=== PATIENT | female | born 1960 | race Caucasian/White ===

== ENCOUNTER 2021-07-07 04:49 | Inpatient (IN) | payer BC, SELFPAY ==
[2021-07-07] VITALS (11 sets, daily range): BP systolic 111–164; BP diastolic 69–96; PULSE 65–94; RESP 13–20; TEMP 36.7–37.2; O2SAT 94–100
--- NOTE | ~2021-07-07 | XR_ITS ---
EXAMINATION: XR abdomen NG/feed tube insert EXAM DATE: 07/07/2021 08:56 INDICATION: NG tube placement TECHNIQUE: Frontal projection(s) of the abdomen for interpretation. There is no prior study for ovidio mauro. FINDINGS: Tip of the feeding tube is in the patulous portion of the distal esophagus, above the gastr ic banding device. Given the size of the gastroesophageal lumen at the gastric banding device, doubtf ul that this could be advanced any further. There was fluid within the patulous distal esophagus on t he CT scan. No upper abdominal dilated small bowel. Lung bases are clear. Contrast within renal calyc es. IMPRESSION: Feeding tube tip within patulous distal esophagus above the gastric banding device - prob ably would not be able to advance this any further correlating with CT. No dilated small bowel in the upper abdomen. Reviewed, dictated and finalized at location D. TION CLASSIFIER IMPRESSION: Feeding tube tip within patulous distal esophagus above the gastric banding device - probably would not be able to advance this any further correl ating with CT. No dilated small bowel in the upper abdomen.
--- NOTE | ~2021-07-07 | XR_ITS ---
EXAMINATION: XR abdomen obstructive series DATE: 07/08/2021 08:34 INDICATION: Small bowel intussusception. Abdominal pain. TECHNIQUE: Upright and supine views of the abdomen were obtained. COMPARISON: CT abdomen and pelvis 07/07/2021 FINDINGS: There are no dilated loops of bowel. The nasogastric tube tip is in the stomach with proxim al side port in the distal esophagus. A lap band is noted around the proximal stomach. No free intrap eritoneal gas. Radiopaque foreign bodies overlying left pelvis may be outside the patient. IMPRESSION: 1. Nonobstructive bowel gas pattern. 2. Nasogastric tube tip in the stomach with proximal side port in the distal esophagus. Reviewed, dictated and finalized at location A. RNAL AUDIT MANAGER IMPRESSION: 1. Nonobstructive bowel gas pattern. 2. Nasogastric tube tip in the stomach with proximal side port in the distal es ophagus.
--- NOTE | ~2021-07-07 | CT_ITS ---
EXAMINATION: CT abdomen pelvis w con DATE: 07/07/2021 07:10 INDICATION: Upper abdominal pain TECHNIQUE: Computed tomography (CT) of the abdomen and pelvis was performed with 100 mL Omnipaque-350 intravenous contrast. Automated exposure control and iterative reconstruction technique were employe d. The dose-length product was 582.64 mGy-cm. COMPARISON: None FINDINGS: Small fat-containing left-sided Bochdalek hernia. Heart size is normal. No pericardial or pleural eff usion. Likely reflux fluid within either a small sliding-type hiatal hernia versus patulous distal es ophagus. Adjustable laparoscopic banding procedure with normal phi angle of 45 degrees. Liver, gallbl adder, spleen, pancreas, bilateral adrenal glands and kidneys are normal. There is a small bowel intu ssusception in the central abdomen which extends over approximately 15 cm length there is a 2.6 x 1.7 x 1.2 cm likely intramural lipoma as a lead mass. Small amount of fluid within the small bowel at th e proximal side of the intussusception with decompression of the more distal small bowel. There are h owever no additional more proximal fluid-filled loops of small bowel to suggest obstruction although the duration of time the intussusception is been present is unknown and could not exclude a very catarina y obstruction. Colon is unremarkable. The appendix is not visualized. No pericecal inflammatory delarosa e to suggest acute appendicitis. Bladder, uterus and right adnexa are unremarkable. 1.9 cm partially rim calcified left adnexal cyst. Trace amount of likely physiologic free fluid in the cul-de-sac. No pneumatosis, abscess or free intraperitoneal gas. No pathologically enlarged abdominal or pelvic lymp hadenopathy. Mild lumbar levoscoliosis with moderate spondylosis. IMPRESSION: 1. Small bowel intussusception with 2.6 x 1.7 x 1.2 cm intramural lipoma as the lead mass. This is li fernandez very recent as there is no significant upstream bowel dilation to suggest obstruction of any sig nificant length of time. Line 2. Likely refluxed fluid either within a sliding-type hiatal hernia or patulous distal esophagus prox imal to the ring of an adjustable gastric banding procedure which is in expected position. Reviewed, dictated and finalized at location A. VISION PRODUCTION ASSISTANT IMPRESSION: 1. Small bowel intussusception with 2.6 x 1.7 x 1.2 cm intramural lipoma as the lead mass. This is likely very recent as there is no significant upstream kelsi l dilation to suggest obstruction of any significant length of time. Line 2. Likely refluxed fluid either within a sliding-type hiatal hernia or patulous distal esophagus proximal to the ring of an adjustable gastric banding procedu re which is in expected position.
--- NOTE | ~2021-07-07 | XR_ITS ---
EXAMINATION: XR abdomen/kub 1V DATE: 07/11/2021 11:59 INDICATION: Adynamic ileus. TECHNIQUE: A supine view of the abdomen on 2 radiographs was obtained. COMPARISON: CT abdomen and pelvis 07/07/2021 FINDINGS: There are no dilated loops of bowel. There is oral contrast in the colon. The nasogastric t ube tip is in the stomach. A gastric band is noted. IMPRESSION: 1. Normal bowel gas pattern. Reviewed, dictated and finalized at location A. OME CENTER AGENT
--- NOTE | ~2021-07-07 | XR_ITS ---
EXAMINATION: XR chest 2V DATE: 07/07/2021 06:24 INDICATION: Chest and abdominal pain. TECHNIQUE: AP and lateral views of the chest were obtained. COMPARISON: Chest radiograph dated 01/13/2017 FINDINGS: The lungs remain clear with no focal airspace opacities, pulmonary edema, pleural effusion or pneumot horax. The cardiomediastinal silhouette is normal. Adjustable gastric lap band in expected position. Mild thoracolumbar dextroscoliosis with mild spondylosis. IMPRESSION: 1. No acute cardiopulmonary disease. Reviewed, dictated and finalized at location A. ZER LABORATORY TECHNICIAN
--- NOTE | ~2021-07-07 | XR_ITS ---
EXAMINATION: XR abdomen obstructive series DATE: 07/09/2021 06:59 INDICATION: Small bowel obstruction TECHNIQUE: Upright and supine views of the abdomen were obtained. COMPARISON: 07/08/2021 FINDINGS: The nasogastric tube is in the stomach. There are persistently dilated loops of small bowel in the left abdomen and pelvis. Contrast from yesterday's small bowel follow-through persists in dil ated small bowel loops to the area of the intussusception seen on CT. There has been no appreciable p rogression of contrast. A gastric lap band is noted. No intraperitoneal gas is identified. The lung b ases are clear. IMPRESSION: 1. Persistent small bowel obstruction. Reviewed, dictated and finalized at location A. RY GOODS MAKER
--- NOTE | ~2021-07-07 | XR_ITS ---
EXAMINATION: XR UGI water soluble w sbs DATE: 07/08/2021 16:54 INDICATION: Small bowel intussusception. TECHNIQUE: Water-soluble contrast was injected into the nasogastric tube. Fluoroscopy of the esophagu s, stomach, and small bowel was performed. Fluoroscopy exposure time was 3.2 minutes. Radiographs of the abdomen were obtained. The total number of images was 12. COMPARISON: CT abdomen and pelvis 07/07/2021 FINDINGS: UPPER GASTROINTESTINAL SERIES: The nasogastric tube tip is in the stomach with proximal side port in the distal esophagus. Injected contrast entered the stomach and esophagus. The tube was repositioned with the tip and proximal side port both in the stomach. There is a gastric band around the proximal stomach. The esophagus is patul ous. The stomach shows a normal folding pattern. SMALL BOWEL SERIES: At 6 hours, contrast had not passed the area of the intussusception seen by CT. Some of the opacified small bowel loops are distended. IMPRESSION: 1. Small bowel obstruction at the site of the intussusception seen by CT. Reviewed, dictated and finalized at location A. ER
--- NOTE | 2021-07-07 05:18 | ECG_ITS ---
Measurements Intervals [place] Rate: 68 P: 78 IN: 155 QRS: 18 QRSD: 91 T: 50 QT: 406 QTc: 433 Interpretive Statements SINUS RHYTHM POSSIBLE LEFT ATRIAL ENLARGEMENT BORDERLINE ECG Electronically Signed On 07-07-2021 5:52:18 POLICE DETECTIVE by Abilio Sparks D.O.
--- NOTE | 2021-07-07 05:21 | ED.CHESTPAIN ---
HPI - Chest Pain General Chief Complaint: Chest Pain <Troy Bautista MD - Last Filed: 07/07/21 07:18> Stated Complaint: chest pain <Troy Bautista MD - Last Filed: 07/07/21 07:18> Time Seen by Provider: 07/07/21 05:13 <Troy Bautista MD - Last Filed: 07/07/21 07:18> Source: patient <Troy Bautista MD - Last Filed: 07/07/21 07:18> History of Present Illness HPI narrative: Patient denies any cecal mass, history presents with epigastric pain. Reports pain starts in her epigastric area and radiates up into her chest. Describes the pain as just pain . There is no clear aggravating or alleviating factors. Short symptoms started around 2 AM and then associated with nausea and dry heaves. She denies any diarrhea denies any shortness of breath denies any recent hospitalizations or significant cardiac history <Troy Bautista MD - Last Filed: 07/07/21 07:18> Related Data Home Medications: Home Medications Medication Instructions Recorded Confirmed No Home Medications 07/07/21 07/07/21 <Troy Bautista MD - Last Filed: 07/07/21 07:18> Allergies/Adverse Reactions: Allergies Allergy/AdvReac Type Severity Reaction Status Date / Time No Known Allergies Allergy Verified 07/07/21 11:43 <Troy Bautista MD - Last Filed: 07/07/21 07:18> Review of Systems Review of Systems: CONSTITUTIONAL: Denies fever, chills, or sweats. EYES: Denies visual changes, redness, or discharge. ENT: Denies rhinorrhea, congestion, sore throat, or otalgia. CARDIOVASCULAR: Denies palpitations, or edema. RESPIRATORY: Denies cough or dyspnea. GASTROINTESTINAL: Reports abdominal pain nausea dry heaves GENITOURINARY: Denies dysuria or hematuria. SKIN: Denies rash or itching. MUSCULOSKELETAL: Denies back pain, joint pain, or myalgia. NEUROLOGIC: Denies headache, numbness, dizziness, or weakness. PSYCHIATRIC: Denies anxiety or depression. <Troy Bautista MD - Last Filed: 07/07/21 07:18> PMFSH Past Medical History Medical History: Medical History (Updated 07/07/21 @ 14:18 by Shelley Du PA-C) Osteoarthritis of left knee <Troy Bautista MD - Last Filed: 07/07/21 07:18> Surgical History Surgical History: Surgical History (Updated 07/07/21 @ 14:16 by Shelley Du PA-C) History of knee replacement History of laparoscopic adjustable gastric banding (2005) <Troy Bautista MD - Last Filed: 07/07/21 07:18> Family History Family History: Family History (Updated 07/07/21 @ 13:26 by URBANO Wadsworth) Other No pertinent family history <Troy Bautista MD - Last Filed: 07/07/21 07:18> Social History Social History: Social History (Updated 07/07/21 @ 14:17 by Shelley Du PA-C) Social History: Surrogate decision maker: Code status: Full code. Smoking packs per day: 1 Smoking cigarettes per day: 20.0 Years smoked: 30 Smoking pack-years: 30.00 Smoking status: Former smoker Tobacco type: cigarettes Smoking end date: 07/25/03 Alcohol intake: current Drinks per week: 2 Substance use: never Substance use type: does not use Living arrangements: with family Additional living arrangements comments: The patient lives in [place] with her adopted child and 2 foster children. Occupation/Education: occupation <Troy Bautista MD - Last Filed: 07/07/21 07:18> Exam Narrative: GENERAL: Well-appearing, well-nourished, and in no acute distress. HEAD: Normocephalic, atraumatic. EYES: PERRLA and EOMI. ENT: Nares clear, no rhinorrhea or epistaxis. Mucous membranes moist. NECK: Supple. No masses. No JVD CHEST: Clear to auscultation. No respiratory distress. No wheezes rales or rhonchi HEART: Regular rate and rhythm. No murmur heard. Normal peripheral pulses. ABDOMEN: Moderate tenderness in the epigastric area soft, nondistended, normal active bowel sounds. EXTREMITIES: Normal range of motion. No
[2021-07-07] MEDS: SODIUM CHLORIDE 0.9% IV 1,000 ML 999 ML IV CONT (05:27)
[2021-07-07] MEDS: LIDOCAINE HCL 2% VISC SOLN 15 ML UDC 20 ML PO (05:29)
[2021-07-07] MEDS: MAG HYDROX/AL HYDROX/SIMETH 30 ML UDC PO (05:29)
[2021-07-07] MEDS: MORPHINE SULFATE (*CRX) 4 MG/ML INJ IV PUSH ×5 (05:44→13:48)
[2021-07-07] MEDS: ONDANSETRON INJ 4 MG/2 ML VIAL IV PUSH ×2 (05:44→21:00)
[2021-07-07 06:19] LABS: Basophils Absolute Auto 0.1 K/mm3 (0.0-0.1); Basophils Percent Auto 0.5 % (0.2-1.2); Eosinophils Absolute Auto 0.1 K/mm3 (0-0.3); Eosinophils Percent Auto 1.1 % (0-4.4); Hematocrit 38.8 % (37.0-47.0); Hemoglobin 12.9 g/dL (12.0-15.0); Immature Granulocyte Absolute 0.05 K/mm3 (0.00-0.031); Immature Granulocyte Percent A 0.4 % (0-0.5); Lymphocytes Absolute Auto 1.68 K/mm3 (0.9-3.2); Lymphocytes Percent Auto 12.8 % (18.3-44.2); Mean Corpuscular HGB Conc 33.2 g/dl (32-36); Mean Corpuscular Hemoglobin 27.5 pg (26-34); Mean Corpuscular Volume 82.7 fl (80-100); Mean Platelet Volume 10.2 fl (7.4-10.4); Monocytes Absolute Auto 0.7 K/mm3 (0.1-0.6); Monocytes Percent Auto 5.6 % (2.6-8.5); Neutrophils Absolute Auto 10.5 K/mm3 (1.3-6.7); Neutrophils Percent Auto 79.6 % (45.5-73.1); Platelet Count Result 336 k/mm3 (150-375); Red Blood Count 4.69 M/mm3 (4.2-5.4); Red Cell Distribution Width 13.8 % (11.5-14.5); White Blood Count 13.1 K/mm3 (4.5-10.0)
[2021-07-07 06:29] LABS: Add Urine Microscopic? YES; Appearance Urine Cloudy (Clear); Bacteria Urine Trace /hpf; Bilirubin Urine Negative (Negative); Blood Urine 1+ (Negative); Color Urine Yellow (Yellow); Glucose Urine UA Negative (Negative); Ketones Urine 1+ mg/dL (Negative); Leukocyte Esterase Ur Negative LEU/UL (Negative); Mucus Urine Few /lpf; Nitrate Urine Negative (Negative); Protein Urine Negative (Negative); Squamous Epithelial Cell Urine Occasional /hpf (Few); Urobilinogen Urine Negative mg/dL (<2.0); WBC Urine 0-3 /hpf
[2021-07-07 06:32] LABS: Alanine Aminotransferase 15 U/L (4-35); Albumin Level 3.9 g/dL (3.5-5.1); Alkaline Phosphatase 69 U/L (38-126); Anion Gap 10 mmol/L (8-16); Aspartate Amino Transferase 23 U/L (14-36); Bilirubin,Total 0.8 mg/dL (0.2-1.3); Blood Urea Nitrogen 15 mg/dL (7-17); Calcium 8.9 mg/dL (8.4-10.2); Carbon Dioxide 21 mmol/L (22-30); Chloride 106 mmol/L (98-107); Estimated CRCL calculation 77 ml/min; Estimated Glomerular Filt Rate > 60; Glucose 182 mg/dL (65-110); Potassium 2.8 mmol/L (3.4-5.0); Sodium 137 mmol/L (137-145)
[2021-07-07 06:41] LABS: Troponin I < 0.012 ng/mL (0.000-0.034)
[2021-07-07] MEDS: POTASSIUM CHLORIDE 20 MEQ PACKET (FOR LIQUID) 40 MEQ PO (06:45)
[2021-07-07 07:38] LABS: Lipase 103 U/L (23-300)
[2021-07-07] MEDS: KCL 20 MEQ/SW 100 ML 100 ML 50 MEQ IVPB (08:35)
--- NOTE | 2021-07-07 11:38 | PC.NURSE ---
This patient, Ila Spencer, was admitted to Medical Room 255-01. Patient/family oriented to hospital policies and general routines including ID bracelet, bed and alarms, visiting hours, pain management, procedures, bathroom and other care routines, personal items, smoking policy, room service/diet, and visiting hours. Information on how to activate the Rapid Response Team has been discussed. Patient/Family are encouraged to report perceived risks to care and to ask questions if they do not understand what they are told or what they should do.
[2021-07-07] MEDS: SODIUM CHLORIDE 0.9% IV 1,000 ML 100 ML IV CONT ×3 (12:43→23:15)
--- NOTE | 2021-07-07 13:07 | PM.IMHP ---
H&P: HPI History of Present Illness Date/Time: 07/07/21 13:07 Chief Complaint: Epigastric abdominal pain and vomiting Narrative: This is a 61-year-old female who presented to the emergency department from home with complaints of epigastric abdominal pain and vomiting. She reports having a sudden onset of severe epigastric abdominal pain around 2:00 a.m. early this morning. The pain woke her from her sleep. Quickly, she developed nausea and vomiting. She had innumerable episodes of vomiting, and eventually was dry heaving. Denies bloody or coffee-ground emesis. She reports her epigastric abdominal pain was radiating into her mid chest. She has never experienced this pain before. This continued for about 2 hours, and then she decided to come into the ER for evaluation. Chest x-ray showed no acute cardiopulmonary disease. CT scan of the abdomen and pelvis showed a small bowel intussusception with a 2.6 x 1.7 x 1.2 cm intramural lipoma as a possible lead mass. No evidence of significant upstream small bowel dilation to suggest obstruction. Also noted, is likely refluxed fluid either within a sliding-type hiatal hernia or patulous distal esophagus proximal to the ring of an adjustable gastric banding procedure, which is in the expected position. [place] [address], negative troponin, potassium of 2.8, and glucose of 182. The patient was given 40 mEq KCl orally and IV in the ER. NG tube was placed with a KUB showing the distal tip just proximal to the gastric band. Our service was consulted for the CT findings of a small bowel intussusception. The patient is now seen in the ER. She reports IV morphine did help her abdominal pain, but it is becoming more severe again. She denies any bloating or nausea at this time. Her NG tube is in place, but clamped on my evaluation. I hooked this back up to low intermittent wall suction. She denies flatus or BM today. Her last bowel movement was yesterday and of normal color and consistency. She has no other complaints at this time. She has a history of a laparoscopic gastric banding in 2007 in [place]. She reportedly follows a surgeon now at [facility], and last saw him about 1 year ago for a fill in her port. Since her surgery, she has lost almost 100 lb and maintained this weight. Review of Systems Review of Systems: All systems reviewed & are unremarkable except as noted in HPI and below Constitutional: Constitutional: Reports as per HPI, Denies chills, Denies fatigue and Denies fever(s) Eyes: Eyes: Reports no additional eye complaints and Denies change in vision ENT: Reports system reviewed and no additional complaints, except as documented, Reports Normal hearing present and Denies dizziness Cardiovascular: Cardiovascular: Reports no additional cardiovascular complaints, Denies chest pain and Denies leg edema Respiratory: Respiratory: Reports no additional respiratory complaints, Denies cough and Denies dyspnea Gastrointestinal: Gastrointestinal: Reports as per HPI, Reports no additional gastrointestinal complaints, Reports abdominal pain, Denies melena, Denies bloating, Denies hematochezia, Denies change in bowel habits, Denies coffee ground emesis, Denies dysphagia, Reports nausea, Reports vomiting and Denies hematemesis Genitourinary: Genitourinary: Denies hematuria, Denies nocturia, Denies dysuria and Denies urinary urgency Musculoskeletal: Musculoskeletal: Reports no additional musculoskeletal complaints, Denies abnormal gait, Denies deformity and Denies joint swelling Integumentary/Breasts: Skin/Breast: Denies wounds Neurologic: Reports system reviewed and no additional complaints, except as documented, Denies focal weakness, Denies numbness and Denies tingling Psychiatric: Psychiatric: Denies anxiety and Denies depression [facility] Past Medical History Medical History (Updated 07/07/21 @ 14:18 by Shelley Du PA-C) Osteoarthritis of left knee
--- NOTE | 2021-07-07 13:50 | WPDCN ---
Assessment and Plan Assessment and plan (1) Intussusception of intestine: Code(s): K56.1 - Intussusception Status: Acute Assessment and Plan: Management per primary service. NG tube is currently in place and she is receiving sucralfate q.8 hours. Plain abdominal films ordered for a.m. to evaluate for obstruction. (2) Hypokalemia: Code(s): E87.6 - Hypokalemia Status: Acute Assessment and Plan: Potassium has been replaced and will be monitored. (3) Elevated blood pressure reading: Code(s): R03.0 - Elevated blood-pressure reading, without diagnosis of hypertension Status: Acute Assessment and Plan: Blood pressures have been running in the 150 systolic, may very well be due to pain. Will continue to trend for now. (4) Hyperglycemia: Code(s): R73.9 - Hyperglycemia, unspecified Status: Acute Assessment and Plan: Check fasting glucose and A1c in a.m. Additional Plan Thank you for allowing us to participate in this patient's care. Please do not hesitate to contact us with any questions. Supervising physician for this medical consultation is Dr. Keaton Sanderson. HPI Data of Consult Date/Time: 07/07/21 13:50 Requesting Physician: Rudy Lamas MD Primary Care Provider: Teodoro Gonzalez, MElise. Consult Narrative Narrative: This is a very pleasant 61-year-old female without significant medical history who presented to the emergency department earlier today via EMS for evaluation of abdominal pain. She was wakened from sleep at about 02:00 with severe, son pain in the periumbilical and epigastric region associated with nausea and vomiting. She reports innumerable episodes of emesis and had significant dry heaves thereafter. She has a difficult time describing the pain but reports that it was severe and seem to radiate somewhat into the chest. After approximately 2 hours she decided to come to the ER for evaluation where a CT of the abdomen and pelvis showed a small bowel intussusception with what appears to be in intramural lipoma with no evidence of as upstream bowel dilation to suggest obstruction. She has a history of lap band surgery over a decade ago and the CT also mentioned refluxed fluid either within a sliding-type hiatal hernia or patulous distal esophagus proximal to the gastric band. An NG tube was placed for decompression, however and she is being admitted in this setting. She is still having abdominal discomfort at this time but reports some improvement with morphine. She had a normal bowel movement last evening at approximately 17:00. She denies fever, chills, sweats, chest pain, shortness of breath, hematemesis, melena, and hematochezia. No known history of malignancy. She has never had a colonoscopy but reports a normal Cologuard last year. Review of Systems Review of Systems: Twelve systems were reviewed. No fever, chills, or sweats. No recent cold or flu symptoms. She lost about 100 lb and has maintained this weight since her gastric banding in 2007. She is followed by a bariatric surgeon at [facility] and last had her port filled approximately 1 year ago. She is active and enjoys riding her bike with her children. She has never had exertional chest pain. Except as documented, all other systems were reviewed and are negative. [facility] Past Medical History Medical History (Updated 07/07/21 @ 23:30 by Shelley Du PA-C) No significant past medical history Osteoarthritis of left knee Surgical History Surgical History (Updated 07/07/21 @ 23:30 by Shelley Du PA-C) History of arthroscopic knee surgery History of laparoscopic adjustable gastric banding (2007) History of right knee joint replacement Family History Family History Other No pertinent family history
[2021-07-07] MEDS: SUCRALFATE SUSP 100 MG/ML 10 ML UDC 1000 MG FEED TUBE (18:10)
[2021-07-07] MEDS: MORPHINE SULFATE (*CRX) 2 MG/ML INJ IV PUSH ×2 (19:35→23:58)
[2021-07-07] MEDS: PANTOPRAZOLE SODIUM IV 40 MG VIAL IV PUSH (20:57)
[2021-07-08] VITALS (11 sets, daily range): BP systolic 148–162; BP diastolic 62–76; PULSE 84–103; RESP 16–21; TEMP 36.4–37.5; O2SAT 96–100
[2021-07-08] MEDS: MORPHINE SULFATE (*CRX) 2 MG/ML INJ IV PUSH ×2 (01:59→06:38)
[2021-07-08] MEDS: SUCRALFATE SUSP 100 MG/ML 10 ML UDC 1000 MG FEED TUBE ×2 (06:38→17:11)
[2021-07-08 06:47] LABS: Basophils Percent Auto 0.2 % (0.2-1.2); Eosinophils Percent Auto 0.1 % (0-4.4); Hematocrit 42.2 % (37.0-47.0); Hemoglobin 13.4 g/dL (12.0-15.0); Immature Granulocyte Absolute 0.03 K/mm3 (0.00-0.031); Immature Granulocyte Percent A 0.2 % (0-0.5); Lymphocytes Absolute Auto 0.81 K/mm3 (0.9-3.2); Lymphocytes Percent Auto 6.3 % (18.3-44.2); Mean Corpuscular HGB Conc 31.8 g/dl (32-36); Mean Corpuscular Hemoglobin 27.3 pg (26-34); Mean Corpuscular Volume 85.9 fl (80-100); Monocytes Absolute Auto 0.9 K/mm3 (0.1-0.6); Monocytes Percent Auto 6.7 % (2.6-8.5); Neutrophils Absolute Auto 11.2 K/mm3 (1.3-6.7); Neutrophils Percent Auto 86.5 % (45.5-73.1); Platelet Count Result 261 k/mm3 (150-375); Red Blood Count 4.91 M/mm3 (4.2-5.4); Red Cell Distribution Width 13.9 % (11.5-14.5); White Blood Count 12.9 K/mm3 (4.5-10.0)
[2021-07-08 07:03] LABS: Anion Gap 5 mmol/L (8-16); Blood Urea Nitrogen 10 mg/dL (7-17); Calcium 8.7 mg/dL (8.4-10.2); Carbon Dioxide 26 mmol/L (22-30); Chloride 99 mmol/L (98-107); Estimated CRCL calculation 89 ml/min; Estimated Glomerular Filt Rate > 60; Glucose 118 mg/dL (65-110); Magnesium 2.1 mg/dL (1.6-2.3); Potassium 3.7 mmol/L (3.4-5.0); Sodium 130 mmol/L (137-145)
[2021-07-08 07:12] LABS: Lactic Acid Reflex 0.6 mmol/L (0.7-2.1)
[2021-07-08 07:48] LABS: Hemoglobin A1C 5.5 % (<5.7)
[2021-07-08] MEDS: PANTOPRAZOLE SODIUM IV 40 MG VIAL IV PUSH ×2 (08:13→21:36)
[2021-07-08] MEDS: MORPHINE SULFATE (*CRX) 4 MG/ML INJ IV PUSH ×4 (08:51→21:32)
[2021-07-08] MEDS: SODIUM CHLORIDE 0.9% IV 1,000 ML 100 ML IV CONT ×2 (09:31→23:59)
--- NOTE | 2021-07-08 14:55 | PM.PNGS ---
Progress Note: A&P Assessment and Plan (1) Intussusception of intestine: Code(s): K56.1 - Intussusception Status: Acute Assessment and Plan: CT scan showed a 15 cm long small bowel intussusception with a possible intramural lipoma as a lead mass, as well as likely refluxed fluid within a patulous distal esophagus. WBC down, lactic acid normal today, but still having persistent abdominal pain. We ordered a Gastrografin UGI small bowel follow through today. I discussed with the patient that if she appears to be obstructed with the intussusception, then she would likely need exploratory surgery. Will await SBFT results. Continue NG tube, IV fluids, and IV analgesics. Continue Protonix IV and carafate. (2) Abdominal pain: Qualifiers: Abdominal location: unspecified location Qualified Code(s): R10.9 - Unspecified abdominal pain Code(s): R10.9 - Unspecified abdominal pain Status: Acute Assessment and Plan: Unclear etiology. Continues to be persistent. Will await UGI/SBFT results. (3) Nausea & vomiting: Qualifiers: Vomiting type: unspecified Qualified Code(s): R11.2 - Nausea with vomiting, unspecified Code(s): R11.2 - Nausea with vomiting, unspecified Status: Acute Assessment and Plan: Resolved. No further issues with nausea or vomiting since NG placed. Continue NG tube decompression while awaiting UGI/SBFT results. (4) Acute hypokalemia: Code(s): E87.6 - Hypokalemia Status: Acute Assessment and Plan: Potassium normal this morning. Continue to monitor labs. Additional Plan I have discussed the patient's case and plan of care with Dr. Lamas. Subjective Subjective Date/Time Seen: 07/08/21 14:55 Patient reports: still having pain, no flatus, no bowel movement and afebrile Interval history: Patient seen and examined. She does not feel any better. She reports still having epigastric and central abdominal pain that is the same as yesterday. This is improves with IV pain medication but comes back as the medication wears off. She denies any nausea or vomiting with her NG being clamped today. No other complaints at this time. Review of Systems Review of Systems: All systems reviewed & are unremarkable except as noted in HPI and below Gastrointestinal: Gastrointestinal: Reports as per HPI and Reports no additional gastrointestinal complaints Exam Const: General: no acute distress, alert, awake and uncomfortable Orientation/consciousness: patient oriented x3 Resp: Effort & Inspection: able to speak in complete sentences Auscultation: clear to auscultation bilaterally Cardio: Rate: regular rate Rhythm: regular rhythm GI: Inspection: non-distended GI Palp: Yes Soft to palpation, Yes Tenderness to palpation present (GI) (diffusely tender), No Guarding due to palpation present (GI), No Hernia present, No Palpable mass present and No Rebound tenderness present Auscultation: Hypoactive bowel sounds present Other: NG tube clamped Neuro: General: moves all extremities and no focal motor deficits Extrem: General: normal to inspection and no clubbing, cyanosis or edema Psych: Insight: Good insight present (Psych) Judgement: Good judgement present (Psych) Objective Data Vital Signs Vital Signs: Vital Signs - 24 hr 07/07/21 16:00 07/07/21 18:50 07/07/21 20:00 Temperature 98.9 F 98.0 F Pulse Rate 86 88 94 Respiratory Rate 18 20 Blood Pressure 149/70 H 150/84 H Pulse Oximetry 94 98 07/08/21 00:00 07/08/21 04:00 07/08/21 08:04 Temperature 98.6 F 97.6 F Pulse Rate 91 84 90 Respiratory Rate 18 21 H Blood Pressure 149/68 H 148/62 H Pulse Oximetry 96 100 07/08/21 08:13 07/08/21 09:05 07/08/21 12:01 Temperature 99.0 F Pulse Rate 87 86 Respiratory Rate 16 16 Blood Pressure 148/68 H Pulse Oximetry 97 96 07/08/21 12:55 07/08/21 13:02 Temperature 99.5 F Pulse Rate 84 Respiratory Rate 16 Blood Pre
--- NOTE | 2021-07-08 18:00 | PM.IMPN ---
Progress Note: A&P Assessment and Plan (1) Intussusception of intestine: Code(s): K56.1 - Intussusception Status: Acute Assessment and Plan: Management per primary service. NG tube is currently in place and she is receiving sucralfate q.8 hours. Plain abdominal films ordered for a.m. to evaluate for obstruction. (2) Hypokalemia: Code(s): E87.6 - Hypokalemia Status: Acute Assessment and Plan: Potassium has been replaced and will be monitored. (3) Elevated blood pressure reading: Code(s): R03.0 - Elevated blood-pressure reading, without diagnosis of hypertension Status: Acute Assessment and Plan: Blood pressures have been running in the 150 systolic, may very well be due to pain. Will continue to trend for now. (4) Hyperglycemia: Code(s): R73.9 - Hyperglycemia, unspecified Status: Acute Assessment and Plan: Check fasting glucose and A1c in a.m. Additional Plan 07/08/21 potassium 30mEq Small bowel series slow transit cont NGT to LIS overnight surgeon recommends intervention if dye does not completely transverse bowel overnight cont current care NPO Subjective Date/time seen: 07/08/21 18:00 Patient doing okay states that she has no flatus still with abdominal discomfort and pain that she thinks overall she is getting worse. NG tube is in place to L IS. Possible surgery tomorrow if symptoms do not improve patient is in agreement with this. Exam Narrative: General: Mildly ill-appearing female lying supine Weight: 77 kg. BMI: 25.1. HEENT: Normocephalic, atraumatic. EOMI. Sclerae anicteric. NG tube in the left naris draining opaque yellow fluid. Neck: Supple. Respiratory: Lungs are clear to auscultation bilaterally. Cardiovascular: Regular rate and rhythm with S1-S2. Gastrointestinal: Abdomen is soft and nondistended. She is tender to palpation throughout the abdomen but more so in the lower left and right quadrant Lap band port is palpable in the upper abdomen. Hypo active bowel sounds Skin: Warm and dry. No rash or lesions on limited exam. Extremities: No cyanosis, clubbing, or edema. Radial and pedal pulses intact. Neurological: Alert. Cranial nerves 2-12 grossly intact. No gross focal deficits to casual conversation. Psychiatric: Pleasant and cooperative with normal mood and affect. Judgment and insight intact. Objective Data Vital Signs Vital Signs: Vital Signs - 24 hr 07/07/21 18:50 07/07/21 20:00 07/08/21 00:00 Temperature 98.9 F 98.0 F 98.6 F Pulse Rate 88 94 91 Respiratory Rate 18 20 18 Blood Pressure 149/70 H 150/84 H 149/68 H Pulse Oximetry 94 98 96 07/08/21 04:00 07/08/21 08:04 07/08/21 08:13 Temperature 97.6 F Pulse Rate 84 90 Respiratory Rate 21 H 16 Blood Pressure 148/62 H Pulse Oximetry 100 97 07/08/21 09:05 07/08/21 12:01 07/08/21 12:55 Temperature 99.0 F Pulse Rate 87 86 Respiratory Rate 16 Blood Pressure 148/68 H 154/76 H Pulse Oximetry 96 07/08/21 13:02 07/08/21 16:03 Temperature 99.5 F Pulse Rate 84 88 Respiratory Rate 16 Blood Pressure Pulse Oximetry 99 Intake/Output Intake/Output: Intake & Output 07/05/21 07/06/21 07/07/21 07/08/21 23:59 23:59 23:59 23:59 Intake Total 2200 1000 Output Total 2100 Balance 2200 -1100 Meds/Results Medications: Active Medications Generic Name Dose Route Start Last Admin Trade Name Freq PRN Reason Stop Dose Admin Sodium Chloride 1,000 mls @ 100 mls/hr 07/07/21 13:10 07/08/21 13:00 Normal Saline Iv IV CONT 100 mls/hr .Q10H ASHOK Infusion Morphine Sulfate 2 mg 07/07/21 13:08 07/08/21 06:38 Morphine Sulfate (*Crx) 2 Mg/Ml Inj IV PUSH 2 mg Q2H PRN Administration Pain Rated 4-6 Morphine Sulfate 4 mg 07/07/21 13:08 07/08/21 17:16 Morphine Sulfate (*Crx) 4 Mg/Ml Inj IV PUSH 4 mg Q2H PRN Administration Pain Rated 7-10 Ondansetron HCl 4 mg 07/07/21 13:08
[2021-07-08] MEDS: ONDANSETRON INJ 4 MG/2 ML VIAL IV PUSH (21:34)
[2021-07-09] VITALS (19 sets, daily range): BP systolic 105–147; BP diastolic 49–81; PULSE 80–109; RESP 12–20; TEMP 36.2–36.9; O2SAT 94–100
[2021-07-09] MEDS: MORPHINE SULFATE (*CRX) 2 MG/ML INJ IV PUSH ×3 (02:19→18:41)
[2021-07-09 06:03] LABS: Basophils Percent Auto 0.3 % (0.2-1.2); Eosinophils Percent Auto 0.2 % (0-4.4); Hematocrit 41.8 % (37.0-47.0); Hemoglobin 13.3 g/dL (12.0-15.0); Immature Granulocyte Absolute 0.07 K/mm3 (0.00-0.031); Immature Granulocyte Percent A 0.5 % (0-0.5); Lymphocytes Percent Auto 7.4 % (18.3-44.2); Mean Corpuscular HGB Conc 31.8 g/dl (32-36); Mean Corpuscular Hemoglobin 27.6 pg (26-34); Mean Corpuscular Volume 86.7 fl (80-100); Mean Platelet Volume 10.2 fl (7.4-10.4); Monocytes Absolute Auto 1.4 K/mm3 (0.1-0.6); Neutrophils Absolute Auto 11.1 K/mm3 (1.3-6.7); Neutrophils Percent Auto 81.6 % (45.5-73.1); Platelet Count Result 264 k/mm3 (150-375); Red Blood Count 4.82 M/mm3 (4.2-5.4); White Blood Count 13.5 K/mm3 (4.5-10.0)
[2021-07-09 06:09] LABS: Lactic Acid Reflex 0.7 mmol/L (0.7-2.1)
[2021-07-09 06:10] LABS: Alanine Aminotransferase 11 U/L (4-35); Albumin Level 3.6 g/dL (3.5-5.1); Alkaline Phosphatase 59 U/L (38-126); Anion Gap 6 mmol/L (8-16); Aspartate Amino Transferase 20 U/L (14-36); Bilirubin,Total 1.2 mg/dL (0.2-1.3); Blood Urea Nitrogen 13 mg/dL (7-17); Calcium 8.7 mg/dL (8.4-10.2); Carbon Dioxide 30 mmol/L (22-30); Chloride 100 mmol/L (98-107); Estimated CRCL calculation 77 ml/min; Estimated Glomerular Filt Rate > 60; Glucose 115 mg/dL (65-110); Magnesium 2.1 mg/dL (1.6-2.3); Potassium 3.6 mmol/L (3.4-5.0); Sodium 136 mmol/L (137-145)
--- NOTE | 2021-07-09 07:15 | WPDANESEPPF ---
Anes - Initial Pre Proc Eval Procedure: Operation Date: 07/09/21 07:30 Proposed Procedures p Diagnostic Laparoscopy, Lysis of Adhesions, Possible Small Bowel Resection, Possible Open Laparotomy - Rudy Lamas MD Date/Time: 07/09/21 07:15 Surgeon: Rudy Lamas MD Pre Op Diagnosis: intussusception/hypokalemia Patient Data Age: 61 Gender: F Height: 1.75 m Weight: 84.8 kg Last Vital Signs Temp 36.7 C 07/09/21 04:00 Pulse 98 07/09/21 04:00 Resp 18 07/09/21 04:00 BP 126/61 07/09/21 04:00 Pulse Ox 96 07/09/21 04:00 Allergies Allergy/AdvReac Type Severity Reaction Status Date / Time No Known Allergies Allergy Verified 07/07/21 11:43 Home Medications Medication Instructions Recorded Confirmed Type No Home Medications 07/07/21 07/07/21 History Laboratory Tests 07/08/21 07/09/21 07/09/21 06:09 05:32 05:32 WBC 13.5 K/mm3 H K/mm3 (4.5-10.0) RBC 4.82 M/mm3 M/mm3 (4.2-5.4) Hgb 13.3 g/dL g/dL (12.0-15.0) Hct 41.8 % % (37.0-47.0) MCV 86.7 fl fl (80-100) MCH 27.6 pg pg (26-34) MCHC 31.8 g/dl L g/dl (32-36) RDW 14.0 % % (11.5-14.5) Plt Count 264 k/mm3 k/mm3 (150-375) MPV 10.2 fl fl (7.4-10.4) Immature Gran % (Auto) 0.5 % % (0-0.5) Neut % (Auto) 81.6 % H % (45.5-73.1) Lymph % (Auto) 7.4 % L % (18.3-44.2) [place] % (Auto) 10.0 % H % (2.6-8.5) Eos % (Auto) 0.2 % % (0-4.4) Baso % (Auto) 0.3 % % (0.2-1.2) Lymph # (Auto) 1.00 K/mm3 K/mm3 (0.9-3.2) [place] # (Auto) 1.4 K/mm3 H K/mm3 (0.1-0.6) Eos # (Auto) 0.0 K/mm3 K/mm3 (0-0.3) Baso # (Auto) 0.0 K/mm3 K/mm3 (0.0-0.1) Abs Immat Gran (auto) 0.07 K/mm3 H K/mm3 (0.00-0.031) Absolute Neuts (auto) 11.1 K/mm3 H K/mm3 (1.3-6.7) Absolute Nucleated RBC 0.0 K/mm3 K/mm3 (0.0-0.012) Nucleated RBC % 0.0 % % (0.0-0.2) Sodium Potassium Chloride Carbon Dioxide Anion Gap BUN Creatinine Estim Creat Clear Calc Estimated GFR Glucose Hemoglobin A1c 5.5 % % (<5.7) Lactic Acid 0.7 mmol/L mmol/L (0.7-2.1) Calcium Magnesium Total Bilirubin AST ALT Alkaline Phosphatase Total Protein Albumin 07/09/21 05:32 WBC RBC Hgb Hct MCV MCH MCHC RDW Plt Count MPV Immature Gran % (Auto) Neut % (Auto) Lymph % (Auto) [place] % (Auto) Eos % (Auto) Baso % (Auto) Lymph # (Auto) [place] # (Auto) Eos # (Auto) Baso # (Auto) Abs Immat Gran (auto) Absolute Neuts (auto) Absolute Nucleated RBC Nucleated RBC % Sodium 136 mmol/L L mmol/L (137-145) Potassium 3.6 mmol/L mmol/L (3.4-5.0) Chloride 100 mmol/L mmol/L (98-107) Carbon Dioxide 30 mmol/L mmol/L (22-30) Anion Gap 6 mmol/L L mmol/L (8-16) BUN 13 mg/dL mg/dL (7-17) Creatinine 0.70 mg/dL mg/dL (0.7-1.0) Estim Creat Clear Calc 77 ml/min ml/min Estimated GFR > 60 (59 - ) Glucose 115 mg/dL H mg/dL (65-110) Hemoglobin A1c Lactic Acid Calcium 8.7 mg/dL mg/dL (8.4-10.2) Magnesium 2.1 mg/dL mg/dL (1.6-2.3) Total Bilirubin 1.2 mg/dL mg/dL (0.2-1.3) AST 20 U/L U/L (14-36) ALT 11 U/L U/L (4-35) Alkaline Phosphatase 59 U/L U/L (38-126) Total Protein 6.0 g/dL L g/dL (6.3-8.2) Albumin 3.6 g/dL g/dL (3.5-5.1) Patient hx anesthesia problems: post op nausea/vomiting Family hx anesthesia problems: post op nausea/vomiting Results Review: All pre-operative
--- NOTE | 2021-07-09 07:17 | WPDHPUPDATE1 ---
History and Physical Update Update Date/Time: 07/09/21 07:17 History and Physical has been reviewed, including an updated exam of the patient. There are changes in the patient's condition. since her H& P. She is not been able to pass any gas or have a bowel movement. Upper GI study with SBFT shows a stoppage of flow of the column of intra intestinal dye in the mid to distal small bowel consistent with the problem of a possible blockage related to the intussusception in the mid to distal small bowel originally suggested on CT scan. Patient has had a lot out her NG after we reconnected to suction last night following a 5-6 hours upper GI - SBFT study. I have discussed the risks, the benefits, the possible complications of a laparoscopic approach for finding the area of obstruction externalizing it and doing a small bowel resection. Along with that because we knows she has the gastric band I believe it is gleason to completely decompress that gastric band I will try to do this with an appropriate needle at the beginning of the case. She has given permission for this also. Possible problems such as bleeding, ileus afterwards, infection, and possible need for reoperation have all been discussed and she understands and wishes to proceed. Risks, benefits, and alternatives have been discussed and questions answered. Patient agrees to proceed with procedure.
[2021-07-09] MEDS: SCOPOLAMINE 1.5 MG PATCH TRANSDERM (07:32)
[2021-07-09] MEDS: LACTATED RINGERS 1,000 ML 30 ML IV CONT ×2 (07:32→10:36)
[2021-07-09] MEDS: LIDO 2%/EPINEPHRINE 1:100,000 20 ML VIAL 40 ML INFILTRATE (10:07)
--- NOTE | 2021-07-09 10:44 | W.PM.PROC2 ---
Procedure Note - Detailed Date of Procedure 07/09/21 Pre-op Diagnosis Small-bowel into small bowel intussusception Post-op Diagnosis same Procedure Performed 1. Hand assisted laparoscopic segmental small bowel resection with anastomosis 2. Diagnostic laparoscopy Surgeon Rudy Lamas MD Field Gauger GEMMA May, OR 1st assist Anesthesia general Indications See preop H&P update. Patient presented with increasing abdominal pain over 24-[address] scan suggested possible intussusception of small bowel to small bowel with a fatty lead point (see CT report) patient also, however had a lap band in place and had dilation of the lower esophagus and stomach above the band which was a confounding factor as to which was really causing her pain. Yesterday afternoon a small-bowel follow-through showed no flow of intestinal dye past an area in the mid small bowel and there for the risks and benefits of laparoscopy to inspect the area and then to possiblely do a small bowel resection versus reduction of the intussusception were discussed with the patient. Time became available this morning and a follow-up x-ray still showed no progression of dye passed the abnormal area in the small bowel. Along with the fact that the patient had significant NG output overnight (greater than a 1000 cc). Therefore, we proceeded with surgical intervention. Findings In the central lower mid abdomen an area of intussusception with thickened bowel that was slightly purplish in color but viable was noted. Small bowel distal to this was normal and decompressed. Small bowel proximal to that was somewhat dilated but otherwise normal looking. I also was able to see the loop of the tubing that goes from her subcutaneous port in the right upper quadrant around through the abdomen and up to her gastric band. This did not appear to be associated with the area of intussusception. Description of Procedure After being seen in the preop area the patient was brought to the operating room and general endotracheal anesthesia was induced by Rick anesthesia. Following this a Moreno catheter was placed. The abdomen was cleansed with a chlorhexidine swipe cloth. Following this standard prep and drape was done of the entire abdomen. Following this a time-out was performed and patient and proposed surgery confirmed with the team. At this point having had the patient's permission I tried to access the port for the lap band in order to decompress it completely. (patient thought perhaps there was 10 cc in it) However. I was unable to access the port with the angled Cobb needles that we had here at [place], therefore after several attempts since it was not essential I aborted that plan. Following this I outlined an incision around the umbilicus toward the left and inferior to it. I then made an incision just below the umbilicus and carried it down through the subcutaneous tissues and using an open technique placed a Jose cannulae in the standard fashion. Two stay sutures of 0 Vicryl were placed on either side of the midline fascia in this area a these were used to elevate the fascia. A small incision with an 11 blade knife was made and I was able to then place initially the Metzenbaum scissors and then a blunt Peon through the peritoneum into a free space. A a 12 mm Bui cannula with a 20 cc balloon was then inserted into the abdominal cavity and we held it in place with one of the stay sutures while we began insufflation of CO2 gas which was remained at a low flow. Once insufflation to a pressure of 7 mmHg was established I placed the 5 mm scope through this and we could see that we were within the abdomen. We went ahead and turned the flow up to highand insufflated the abdomen to 15 mmHg pressure. Knowing this, that we were in the abdomen, we went ahead and insufflated the balloon of the Jose. I pulled the balloon back and secured theOlive against the skin and then we secured the
[2021-07-09] MEDS: fentaNYL CITRATE INJ (*CRX) 100 MCG/2 ML VIAL 25 MCG IV PUSH ×8 (10:59→11:35)
[2021-07-09] MEDS: diphenhydrAMINE HCl INJ 50 MG/ML VIAL 25 MG IV PUSH (11:54)
[2021-07-09] MEDS: SODIUM CHLORIDE 0.9% IV 1,000 ML 100 ML IV CONT ×2 (12:20→16:10)
--- NOTE | 2021-07-09 12:36 | PC.NURSE ---
Returned from OR per bed. Report received from Alan MENENDEZ.
[2021-07-09] MEDS: SUCRALFATE SUSP 100 MG/ML 10 ML UDC 1000 MG FEED TUBE (16:57)
--- NOTE | 2021-07-09 18:49 | PM.IMPN ---
Progress Note: A&P Assessment and Plan (1) Intussusception of intestine: Code(s): K56.1 - Intussusception Status: Inactive Assessment and Plan: Management per primary service. NG tube is currently in place and she is receiving sucralfate q.8 hours. Plain abdominal films ordered for a.m. to evaluate for obstruction. (2) Hypokalemia: Code(s): E87.6 - Hypokalemia Status: Acute Assessment and Plan: Potassium has been replaced and will be monitored. (3) Elevated blood pressure reading: Code(s): R03.0 - Elevated blood-pressure reading, without diagnosis of hypertension Status: Acute Assessment and Plan: Blood pressures have been running in the 150 systolic, may very well be due to pain. Will continue to trend for now. (4) Hyperglycemia: Code(s): R73.9 - Hyperglycemia, unspecified Status: Acute Assessment and Plan: Check fasting glucose and A1c in a.m. Additional Plan 07/08/21 potassium 30mEq Small bowel series slow transit cont NGT to LIS overnight surgeon recommends intervention if dye does not completely transverse bowel overnight cont current care NPO 07/09/21 Potassium IV ordered Pain control per surgeon Continue telemetry monitoring until postop day 1 NG tube to remain in place Patient to remain NPO Plan of care reviewed with patient she is in agreement Subjective Date/time seen: 07/09 18:49 patient seen in PACU doing very well vital signs stable pain well controlled Exam Narrative: General: female lying supine with ice pack over abdomen Weight: 77 kg. BMI: 25.1. HEENT: Normocephalic, atraumatic. EOMI. Sclerae anicteric. NG tube in the left naris Neck: Supple. Respiratory: Lungs are clear to auscultation bilaterally. Cardiovascular: Regular rate and rhythm with S1-S2. Gastrointestinal: Abdomen is soft and nondistended. She is tender to palpation throughout the abdomen midline surgical scar at umbilicus, multiple trocar sites closed with Dermabond as well Skin: Warm and dry. No rash or lesions on limited exam. Extremities: No cyanosis, clubbing, or edema. Radial and pedal pulses intact. Neurological: Alert. Cranial nerves 2-12 grossly intact. No gross focal deficits to casual conversation. Psychiatric: Pleasant and cooperative with normal mood and affect. Judgment and insight intact. Objective Data Vital Signs Vital Signs: Vital Signs - 24 hr 07/08/21 18:50 07/08/21 20:00 07/09/21 00:00 Temperature 98.6 F 98.0 F 97.4 F L Pulse Rate 87 100 102 H Respiratory Rate 18 18 Blood Pressure 162/73 H 159/69 H 125/67 Pulse Oximetry 96 96 95 07/09/21 04:00 07/09/21 07:20 07/09/21 10:36 Temperature 98.0 F 98.4 F 97.9 F Pulse Rate 98 98 92 Respiratory Rate 18 16 14 Blood Pressure 126/61 135/73 119/81 Pulse Oximetry 96 94 100 07/09/21 10:45 07/09/21 11:00 07/09/21 11:15 Temperature Pulse Rate 88 84 97 Respiratory Rate 12 17 20 Blood Pressure 137/59 L 125/57 L 147/65 H Pulse Oximetry 100 100 95 07/09/21 11:30 07/09/21 11:45 07/09/21 11:55 Temperature Pulse Rate 91 83 80 Respiratory Rate 18 15 14 Blood Pressure 132/62 131/56 L 141/67 H Pulse Oximetry 100 100 100 07/09/21 12:00 07/09/21 12:15 07/09/21 12:30 Temperature 97.1 F L 97.6 F Pulse Rate 89 84 86 Respiratory Rate 12 12 Blood Pressure 124/60 128/58 L Pulse Oximetry 100 100 07/09/21 13:00 07/09/21 14:00 07/09/21 16:00 Temperature 97.7 F 97.4 F L Pulse Rate 85 80 84 Respiratory Rate 12 16 Blood Pressure 112/58 L 108/58 L Pulse Oximetry 99 100 07/09/21 18:00 Temperature 98.5 F Pulse Rate 86 Respiratory Rate 12 Blood Pressure 112/62 Pulse Oximetry 100 Intake/Output Intake/Output: Intake & Output 07/06/21 07/07/21 07/08/21 07/09/21 23:59 23:59 23:59 23:59 Intake Total 0 1999 5249 Output Total 0 1974 Balance 2200 -900 3275 Meds/Results Medications: Active Medications Ge
[2021-07-09] MEDS: KCL 20 MEQ/SW 100 ML 100 ML 50 MEQ IVPB ×2 (19:48→22:33)
[2021-07-09] MEDS: PANTOPRAZOLE SODIUM IV 40 MG VIAL IV PUSH (20:03)
[2021-07-09] MEDS: LACTATED RINGERS 500 ML IV CONT (21:04)
[2021-07-09] MEDS: BENZOCAINE/MENTHOL (*BKC) 18 EA LOZENGE 1 LOZENGE PO (21:10)
[2021-07-09] MEDS: MORPHINE SULFATE (*CRX) 4 MG/ML INJ IV PUSH ×2 (22:08)
[2021-07-09] MEDS: SODIUM CHLORIDE 0.9% IV 1,000 ML 150 ML IV CONT (22:33)
[2021-07-10] VITALS (9 sets, daily range): BP systolic 102–139; BP diastolic 44–59; PULSE 70–89; RESP 16–18; TEMP 36.2–36.9; O2SAT 92–99
[2021-07-10 05:25] LABS: Hematocrit 33.8 % (37.0-47.0); Hemoglobin 10.6 g/dL (12.0-15.0); Mean Corpuscular HGB Conc 31.4 g/dl (32-36); Mean Corpuscular Hemoglobin 27.2 pg (26-34); Mean Corpuscular Volume 86.9 fl (80-100); Mean Platelet Volume 10.1 fl (7.4-10.4); Platelet Count Result 172 k/mm3 (150-375); Red Blood Count 3.89 M/mm3 (4.2-5.4); White Blood Count 8.2 K/mm3 (4.5-10.0)
[2021-07-10] MEDS: SODIUM CHLORIDE 0.9% IV 1,000 ML 150 ML IV CONT ×3 (05:36→18:56)
[2021-07-10] MEDS: SUCRALFATE SUSP 100 MG/ML 10 ML UDC 1000 MG FEED TUBE ×3 (05:36→16:41)
[2021-07-10 05:45] LABS: Anion Gap 5 mmol/L (8-16); Blood Urea Nitrogen 12 mg/dL (7-17); Calcium 7.8 mg/dL (8.4-10.2); Carbon Dioxide 28 mmol/L (22-30); Chloride 103 mmol/L (98-107); Estimated CRCL calculation 77 ml/min; Estimated Glomerular Filt Rate > 60; Glucose 94 mg/dL (65-110); Sodium 136 mmol/L (137-145)
[2021-07-10] MEDS: MORPHINE SULFATE (*CRX) 2 MG/ML INJ IV PUSH ×3 (07:20→11:59)
--- NOTE | 2021-07-10 08:25 | WPDANESPN ---
Anes - Prog Note Post-Op Date/Time: 07/10/21 08:25 Cardiovascular status: normal Respiratory status: normal Airway patency: baseline Mental status: baseline Post-Op hydration status: normal Vital Signs: Last Vital Signs Temp 36.4 C 07/10/21 07:48 Pulse 83 07/10/21 07:48 Resp 16 07/10/21 07:48 BP 121/51 L 07/10/21 07:48 Pulse Ox 97 07/10/21 07:48 Pain Score (VAS): 4 I/O: Intake & Output 07/09/21 07/10/21 07/10/21 23:59 07:59 15:59 Intake Total 2750 1100 Output Total 175 400 Balance 2575 700 Laboratory Tests 07/10/21 05:04 07/10/21 05:04 07/10/21 07/10/21 05:04 05:04 WBC 8.2 RBC 3.89 L Hgb 10.6 L Hct 33.8 L MCV 86.9 MCH 27.2 MCHC 31.4 L RDW 14.0 Plt Count 172 MPV 10.1 Sodium 136 L Potassium 4.0 Chloride 103 Carbon Dioxide 28 Anion Gap 5 L BUN 12 Creatinine 0.70 Estim Creat Clear Calc 77 Estimated GFR > 60 Glucose 94 Calcium 7.8 L Post-procedural complaints: none Patient Feedback: Patient satisfied with anesthetic care.
[2021-07-10] MEDS: ENOXAPARIN 40 MG/0.4 ML SYRINGE SUB-Q (09:37)
[2021-07-10] MEDS: PANTOPRAZOLE SODIUM IV 40 MG VIAL IV PUSH ×2 (09:37→20:00)
--- NOTE | 2021-07-10 11:26 | PM.PNGS ---
Progress Note: A&P Assessment and Plan (1) Intussusception of small intestine: Onset Date: ~06/2021 Code(s): K56.1 - Intussusception Status: Acute Assessment and Plan: postop day 1, doing well. Minimal out the NG overnight. Required 1 IV fluid bolus last evening for low urine output. Will leave [facility] in another 24 hours to monitor urine output and IV fluids status. Patient will begin mobilizing as far as walking in the halls. She feels like she can do that. Encouraged incentive spirometry. She knows that she may have an ileus for 3-5 days. There are few bowel sounds today so we will continue NG to low intermittent suction and await return of bowel function. (2) Abdominal pain: Onset Date: ~06/2021 Qualifiers: Abdominal location: unspecified location Qualified Code(s): R10.9 - Unspecified abdominal pain Code(s): R10.9 - Unspecified abdominal pain Status: Acute Assessment and Plan: Deep abdominal pain now is resolved. She has some incisional pain as expected. ( 11 cm incision situated around the umbilicus). Additional Plan Await pathology for further recommendations. However, if patient is able to have return of bowel function NG out she could go home and then I will follow-up with her regarding pathology and further recommendations after her discharge. May be able to go off telemetry today if medicine agrees. Patient H& H was stable but will check H&H and BMP,Mg tomorrow and then will have scheduled a CBC and CMP for Tuesday. (Dr. Centeno covering this weekend). Subjective Subjective Date/Time Seen: 07/10/21 11:26 Post Op day: 1 ( Status post hand assisted small bowel resection) Patient reports: no new complaints and feels better Interval history: patient reports no flatus or bowel movement. Deep abdominal pain is improved. Now has some incisional pain. Nurse reports urine output adequate the last time we checked. Review of Systems Review of Systems: All systems reviewed & are unremarkable except as noted in HPI and below Constitutional: Constitutional: Reports as per HPI, Denies chills and Denies fever(s) Cardiovascular: Cardiovascular: Denies chest pain and Denies dyspnea Respiratory: Respiratory: Reports no additional respiratory complaints and Denies dyspnea Gastrointestinal: Gastrointestinal: Reports as per HPI and Denies bloating Musculoskeletal: Musculoskeletal: Reports no additional musculoskeletal complaints Neurologic: Denies memory loss Psychiatric: Psychiatric: Denies anxiety and Denies memory loss Exam Const: General: cooperative, comfortable, alert and awake Orientation/consciousness: patient oriented x3 HENMT: Head: normal to inspection Mouth: Yes moist mucous membranes Eyes: Sclera: sclerae normal Pupils: Equal, round and reactive pupils present Neck: Neck: normal visual inspection and no JVD Chest: Chest palpation & inspection: normal inspection of the chest Resp: Effort & Inspection: normal respiratory effort Auscultation: clear to auscultation bilaterally Cardio: Jugular venous distension: no JVD Rate: regular rate GI: Inspection: incision ( Clean and dry with surgical glue in place) GI Palp: Yes abdominal tenderness ( especially near midline incision) Auscultation: Hypoactive bowel sounds present Urinary Catheter: Urinary Catheter: patent and draining and urine clear Neuro: General: patient oriented x3 Cranial nerves: Yes Equal, round and reactive pupils present Objective Data Vital Signs Vital Signs: Vital Signs - 24 hr 07/09/21 11:30 07/09/21 11:45 07/09/21 11:55 Temperature Pulse Rate 91 83 80 Respiratory Rate 18 15 14 Blood Pressure 132/62 131/56 L 141/67 H Pulse Oximetry 100 100 100 07/09/21 12:00 07/09/21 12:15 07/09/21 12:30 Temperature 36.2 C L 36.4 C Pulse Rate 89 84 86 Respiratory Rate 12 12 Blood Pressure 124/60 128/58 L Pulse Oximetry 100 100 07/09/21 13:00
--- NOTE | 2021-07-10 13:12 | PM.IMPN ---
Progress Note: A&P Assessment and Plan (1) Intussusception of intestine: Code(s): K56.1 - Intussusception Status: Inactive Assessment and Plan: Management per primary service. NG tube is currently in place and she is receiving sucralfate q.8 hours. Plain abdominal films ordered for a.m. to evaluate for obstruction. (2) Hypokalemia: Code(s): E87.6 - Hypokalemia Status: Acute Assessment and Plan: Potassium has been replaced and will be monitored. (3) Elevated blood pressure reading: Code(s): R03.0 - Elevated blood-pressure reading, without diagnosis of hypertension Status: Acute Assessment and Plan: Blood pressures have been running in the 150 systolic, may very well be due to pain. Will continue to trend for now. (4) Hyperglycemia: Code(s): R73.9 - Hyperglycemia, unspecified Status: Acute Assessment and Plan: Check fasting glucose and A1c in a.m. Additional Plan 07/08/21 potassium 30mEq Small bowel series slow transit cont NGT to LIS overnight surgeon recommends intervention if dye does not completely transverse bowel overnight cont current care NPO 07/09/21 Potassium IV ordered Pain control per surgeon Continue telemetry monitoring until postop day 1 NG tube to remain in place Patient to remain NPO Plan of care reviewed with patient she is in agreement 07/10/2021 Potassium is at goal Pain is well controlled DC telemetry Pod 1 status post Hand assisted laparoscopic segmental small bowel resection with anastomosis Remain NPO NG tube to remain in place Ice chips Defer to surgeon further postop orders Subjective Date/time seen: 07/10/21 13:12 Patient seen postop day 1 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 BMI: 25.1. HEENT: Normocephalic, atraumatic. EOMI. Sclerae anicteric. NG tube in the left naris Neck: Supple. Respiratory: Symmetric chest rise no acute distress Gastrointestinal: Abdomen is soft and nondistended. She is tender to palpation throughout patient with ice pack to abdomen Skin: Warm and dry. No rash or lesions on limited exam. Extremities: No cyanosis, clubbing, or edema. Radial and pedal pulses intact. Neurological: Alert. Cranial nerves 2-12 grossly intact. No gross focal deficits to casual conversation. Psychiatric: Pleasant and cooperative with normal mood and affect. Judgment and insight intact. Objective Data Vital Signs Vital Signs: Vital Signs - 24 hr 07/09/21 14:00 07/09/21 16:00 07/09/21 18:00 Temperature 97.4 F L 98.5 F Pulse Rate 80 84 86 Respiratory Rate 16 12 Blood Pressure 108/58 L 112/62 Pulse Oximetry 100 100 07/09/21 20:00 07/09/21 22:00 07/10/21 00:00 Temperature 97.4 F L 97.1 F L Pulse Rate 81 82 85 Respiratory Rate 18 18 Blood Pressure 105/49 L 110/46 L Pulse Oximetry 99 94 07/10/21 01:41 07/10/21 04:00 07/10/21 07:48 Temperature 97.7 F 97.2 F L 97.6 F Pulse Rate 79 75 83 Respiratory Rate 18 18 16 Blood Pressure 110/46 L 102/46 L 121/51 L Pulse Oximetry 94 94 97 07/10/21 08:00 07/10/21 09:41 Temperature 97.4 F L Pulse Rate 75 84 Respiratory Rate 18 Blood Pressure 119/44 L Pulse Oximetry 97 Intake/Output Intake/Output: Intake & Output 07/07/21 07/08/21 07/09/21 07/10/21 23:59 23:59 23:59 23:59 Intake Total 2200 2000 6900 2100 Output Total 2900 2150 400 Balance 2200 -900 4750 1700 Meds/Results Medications: Active Medications Generic Name Dose Route Start Last Admin Trade Name Freq PRN Reason Stop Dose Admin Benzocaine 1 lozenge 07/09/21 11:25 07/09/21 21:10 Benzocaine/Menthol (*Bkc) 18 Ea Lozenge PO 1 lozenge PRN PRN Administration Sore Throat Diphenhydramine HCl 25 mg 07/09/21 11:56 Diphen
[2021-07-10] MEDS: MORPHINE SULFATE (*CRX) 4 MG/ML INJ IV PUSH ×4 (14:11→21:21)
[2021-07-11] VITALS: BP 118/55; PULSE 87; RESP 17; TEMP 36.7; O2SAT 91
[2021-07-11] MEDS: SODIUM CHLORIDE 0.9% IV 1,000 ML 150 ML IV CONT ×3 (02:17→16:29)
[2021-07-11] MEDS: MORPHINE SULFATE (*CRX) 4 MG/ML INJ IV PUSH ×7 (02:21→23:46)
[2021-07-11 04:00] VITALS: BP 132/52; PULSE 86; RESP 18; TEMP 36.6; O2SAT 93
[2021-07-11] MEDS: SUCRALFATE SUSP 100 MG/ML 10 ML UDC 1000 MG FEED TUBE ×3 (05:30→16:29)
[2021-07-11 05:40] LABS: Hematocrit 31.4 % (37.0-47.0); Hemoglobin 9.9 g/dL (12.0-15.0)
[2021-07-11 06:05] LABS: Anion Gap 12 mmol/L (8-16); Blood Urea Nitrogen 6 mg/dL (7-17); Calcium 7.8 mg/dL (8.4-10.2); Carbon Dioxide 19 mmol/L (22-30); Chloride 106 mmol/L (98-107); Estimated CRCL calculation 104 ml/min; Estimated Glomerular Filt Rate > 60; Glucose 78 mg/dL (65-110); Magnesium 1.7 mg/dL (1.6-2.3); Potassium 3.4 mmol/L (3.4-5.0); Sodium 137 mmol/L (137-145)
[2021-07-11] MEDS: ENOXAPARIN 40 MG/0.4 ML SYRINGE SUB-Q (08:28)
[2021-07-11] MEDS: PANTOPRAZOLE SODIUM IV 40 MG VIAL IV PUSH ×2 (08:28→20:31)
--- NOTE | 2021-07-11 10:21 | PM.IMPN ---
Progress Note: A&P Assessment and Plan (1) Intussusception of intestine: Code(s): K56.1 - Intussusception Status: Inactive Assessment and Plan: Management per primary service. NG tube is currently in place and she is receiving sucralfate q.8 hours. Plain abdominal films ordered for a.m. to evaluate for obstruction. (2) Hypokalemia: Code(s): E87.6 - Hypokalemia Status: Acute Assessment and Plan: Potassium has been replaced and will be monitored. (3) Elevated blood pressure reading: Code(s): R03.0 - Elevated blood-pressure reading, without diagnosis of hypertension Status: Acute Assessment and Plan: Blood pressures have been running in the 150 systolic, may very well be due to pain. Will continue to trend for now. (4) Hyperglycemia: Code(s): R73.9 - Hyperglycemia, unspecified Status: Acute Assessment and Plan: Check fasting glucose and A1c in a.m. Additional Plan 07/08/21 potassium 30mEq Small bowel series slow transit cont NGT to LIS overnight surgeon recommends intervention if dye does not completely transverse bowel overnight cont current care NPO 07/09/21 Potassium IV ordered Pain control per surgeon Continue telemetry monitoring until postop day 1 NG tube to remain in place Patient to remain NPO Plan of care reviewed with patient she is in agreement 07/10/2021 Potassium is at goal Pain is well controlled DC telemetry Pod 1 status post Hand assisted laparoscopic segmental small bowel resection with anastomosis Remain NPO NG tube to remain in place Ice chips Defer to surgeon further postop order 07/11/21 Mild electrolyte imbalance which has been repleted with magnesium and potassium Vital signs are stable Labs are otherwise unremarkable Continue pain control Advancing diet per surgical recommendations NG tube still in place Continue current care KUB Subjective Date/time seen: 07/11/21 10:21 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 Patient remains with NG tube she has no complaints she denies flatus or bowel movements she is up ambulating in hallway Exam Narrative: General: female lying supine with ice pack over abdomen Weight: 85.8kg. BMI: 27.9 HEENT: Normocephalic, atraumatic. EOMI. Sclerae anicteric. NG tube in the left naris Neck: Supple. Respiratory: Symmetric chest rise no acute distress Gastrointestinal: Abdomen is soft and nondistended. She is tender to palpation throughout patient with ice pack to abdomen, surgical site looks clean dry with well approximated borders Skin: Warm and dry. No rash or lesions on limited exam. Extremities: No cyanosis, clubbing, or edema. Radial and pedal pulses intact. Neurological: Alert. Cranial nerves 2-12 grossly intact. No gross focal deficits to casual conversation. Psychiatric: Pleasant and cooperative with normal mood and affect. Judgment and insight intact. Objective Data Vital Signs Vital Signs: Vital Signs - 24 hr 07/10/21 13:00 07/10/21 17:15 07/10/21 20:00 Temperature 98.3 F 98.4 F 97.8 F Pulse Rate 70 85 89 Respiratory Rate 16 16 18 Blood Pressure 122/51 L 139/59 L 108/51 L Pulse Oximetry 92 98 99 07/11/21 00:00 07/11/21 04:00 Temperature 98.0 F 97.9 F Pulse Rate 87 86 Respiratory Rate 17 18 Blood Pressure 118/55 L 132/52 L Pulse Oximetry 91 93 Intake/Output Intake/Output: Intake & Output 07/08/21 07/09/21 07/10/21 07/11/21 23:59 23:59 23:59 23:59 Intake Total 1999 6900 3100 2000 Output Total 2900 2150 925 800 Balance -900 4750 2175 1200 Meds/Results Medications: Active Medications Generic Name Dose Route Start Last Admin Trade Name Freq PRN Reason Stop Dose Admin Benzocaine 1 lozenge 07/09/21 11:25 07/09/21 21:10 Benzocaine/Menthol (*Bkc) 18 Ea Lozenge PO 1 lozenge PRN PRN Administration Sore Throat Diphenhydramine HCl 25 mg 07/09/21 11:
[2021-07-11 10:50] VITALS: BP 104/85; PULSE 95; RESP 18; TEMP 37.3; O2SAT 94
[2021-07-11] MEDS: MAGNESIUM SULF 1 GM/D5W 100 ML 1 GM/100 ML BAG IVPB (12:21)
[2021-07-11 14:00] VITALS: BP 122/45; PULSE 87; RESP 18; TEMP 36.8; O2SAT 94
--- NOTE | 2021-07-11 15:00 | PM.PNGS ---
Progress Note: A&P Assessment and Plan (1) Intussusception of small intestine: Onset Date: ~06/2021 Code(s): K56.1 - Intussusception Status: Acute Assessment and Plan: doing well, will clamp NG and start sips, encourage OOB/IS Subjective Subjective Date/Time Seen: 07/11/21 15:00 feels ok, no bowel fxn yet but pain improved, has been up and ambulating Review of Systems Review of Systems: All systems reviewed & are unremarkable except as noted in HPI and below Exam Const: General: cooperative, comfortable and no acute distress Resp: Effort & Inspection: normal respiratory effort Auscultation: clear to auscultation bilaterally Cardio: Rate: regular rate Rhythm: regular rhythm GI: Inspection: normal to inspection, distended and incision GI Palp: Yes Soft to palpation, Yes Tenderness to palpation present (GI), No Guarding due to palpation present (GI) and No Rigid due to palpation Objective Data Vital Signs Vital Signs: Vital Signs - 24 hr 07/10/21 17:15 07/10/21 20:00 07/11/21 00:00 Temperature 36.9 C 36.6 C 36.7 C Pulse Rate 85 89 87 Respiratory Rate 16 18 17 Blood Pressure 139/59 L 108/51 L 118/55 L Pulse Oximetry 98 99 91 07/11/21 04:00 07/11/21 10:50 07/11/21 14:00 Temperature 36.6 C 37.3 C 36.8 C Pulse Rate 86 95 87 Respiratory Rate 18 18 18 Blood Pressure 132/52 L 104/85 122/45 L Pulse Oximetry 93 94 94 Intake/Output Intake/Output: Intake & Output 07/08/21 07/09/21 07/10/21 07/11/21 23:59 23:59 23:59 23:59 Intake Total 1999 6900 3100 1999 Output Total 2900 2150 925 800 Balance -900 4750 2175 1200 Meds/Results Medications: Active Medications Generic Name Dose Route Start Last Admin Trade Name Freq PRN Reason Stop Dose Admin Benzocaine 1 lozenge 07/09/21 11:25 07/09/21 21:10 Benzocaine/Menthol (*Bkc) 18 Ea Lozenge PO 1 lozenge PRN PRN Administration Sore Throat Diphenhydramine HCl 25 mg 07/09/21 11:56 Diphenhydramine Hcl Inj 50 Mg/Ml Vial IV PUSH Q6H PRN Itching Enoxaparin Sodium 40 mg 07/10/21 09:00 07/11/21 08:28 Enoxaparin 40 Mg/0.4 Ml Syringe SUB-Q 40 mg DAILY ASHOK Administration Fentanyl Citrate 25 mcg 07/09/21 07:21 07/09/21 11:35 Fentanyl Citrate Inj (*Crx) 100 Mcg/2 Ml Vial IV PUSH 25 mcg Q2M PRN Administration Pain Sodium Chloride 1,000 mls @ 150 mls/hr 07/07/21 13:10 07/11/21 08:28 Normal Saline Iv IV CONT 150 mls/hr .Q6H40M ASHOK Administration Morphine Sulfate 2 mg 07/07/21 13:08 07/10/21 11:59 Morphine Sulfate (*Crx) 2 Mg/Ml Inj IV PUSH 2 mg Q2H PRN Administration Pain Rated 4-6 Morphine Sulfate 4 mg 07/07/21 13:08 07/11/21 13:17 Morphine Sulfate (*Crx) 4 Mg/Ml Inj IV PUSH 4 mg Q2H PRN Administration Pain Rated 7-10 Naloxone HCl 0.1 mg 07/09/21 11:56 Naloxone Hcl 0.4 Mg/Ml Vial IV PUSH Q2M PRN Opiate Reversal Ondansetron HCl 4 mg 07/07/21 13:08 07/08/21 21:34 Ondansetron Inj 4 Mg/2 Ml Vial IV PUSH 4 mg Q6H PRN Administration Nausea And Vomiting Ondansetron HCl 4 mg 07/09/21 07:21 Ondansetron Inj 4 Mg/2 Ml Vial IV PUSH ONCE PRN Nausea Pantoprazole Sodium 40 mg 07/07/21 21:00 07/11/21 08:28 Pantoprazole Sodium Iv 40 Mg Vial IV PUSH 40 mg Q12HR ASHOK Administration Sucralfate 1,000 mg 07/07/21 17:10 07/11/21 12:22 Sucralfate Susp 100 Mg/Ml 10 Ml Udc FEED TUBE 1,000 mg TIDAC ASHOK Administration Radiology Results: ITS Impressions Chest X-Ray 07/07/21 06:43 IMPRESSION: 1. No acute cardiopulmonary disease. Abdomen/Pelvis CT 07/07/21 07:12 IMPRESSION: 1. Small bowel intussusception with 2.6 x 1.7 x 1.2 cm intramural lipoma as the lead mass. This is likely very recent as there is no significant upstream bowel dilation to suggest obstruction of any significant length of time. Line 2. Likely refluxed fluid either within a sliding-type hiatal hernia or patulous distal
[2021-07-11 16:00] VITALS: BP 125/52; PULSE 86; RESP 16; TEMP 37.2; O2SAT 95
[2021-07-11] MEDS: KCL 20 MEQ/SW 100 ML 100 ML 50 MEQ IVPB (16:32)
[2021-07-11 20:00] VITALS: BP 127/51; PULSE 93; RESP 16; TEMP 36.3; O2SAT 97
[2021-07-12] VITALS: BP 141/65; PULSE 87; RESP 12; TEMP 36.6; O2SAT 97
[2021-07-12] MEDS: SODIUM CHLORIDE 0.9% IV 1,000 ML 150 ML IV CONT ×4 (01:27→22:40)
[2021-07-12 04:00] VITALS: BP 133/63; PULSE 83; RESP 12; TEMP 36.2; O2SAT 94
[2021-07-12] MEDS: MORPHINE SULFATE (*CRX) 4 MG/ML INJ IV PUSH (05:52)
[2021-07-12] MEDS: SUCRALFATE SUSP 100 MG/ML 10 ML UDC 1000 MG PO ×3 (05:52→15:45)
[2021-07-12 06:58] LABS: Basophils Percent Auto 0.3 % (0.2-1.2); Eosinophils Absolute Auto 0.5 K/mm3 (0-0.3); Eosinophils Percent Auto 8.1 % (0-4.4); Hematocrit 32.2 % (37.0-47.0); Hemoglobin 10.2 g/dL (12.0-15.0); Immature Granulocyte Absolute 0.01 K/mm3 (0.00-0.031); Immature Granulocyte Percent A 0.2 % (0-0.5); Lymphocytes Absolute Auto 0.87 K/mm3 (0.9-3.2); Lymphocytes Percent Auto 14.7 % (18.3-44.2); Mean Corpuscular HGB Conc 31.7 g/dl (32-36); Mean Corpuscular Hemoglobin 26.9 pg (26-34); Mean Platelet Volume 10.3 fl (7.4-10.4); Monocytes Absolute Auto 0.4 K/mm3 (0.1-0.6); Monocytes Percent Auto 7.3 % (2.6-8.5); Neutrophils Absolute Auto 4.1 K/mm3 (1.3-6.7); Neutrophils Percent Auto 69.4 % (45.5-73.1); Platelet Count Result 240 k/mm3 (150-375); Red Blood Count 3.79 M/mm3 (4.2-5.4); Red Cell Distribution Width 13.4 % (11.5-14.5); White Blood Count 5.9 K/mm3 (4.5-10.0)
--- NOTE | 2021-07-12 08:03 | PM.IMPN ---
Progress Note: A&P Assessment and Plan (1) Hypokalemia: Code(s): E87.6 - Hypokalemia Status: Acute Assessment and Plan: Potassium has been replaced and will be monitored. (2) Elevated blood pressure reading: Code(s): R03.0 - Elevated blood-pressure reading, without diagnosis of hypertension Status: Acute Assessment and Plan: Blood pressures have been running in the 150 systolic, may very well be due to pain. Will continue to trend for now. (3) Hyperglycemia: Code(s): R73.9 - Hyperglycemia, unspecified Status: Acute Assessment and Plan: Check fasting glucose and A1c in a.m. Additional Plan 07/08/21 potassium 30mEq Small bowel series slow transit cont NGT to LIS overnight surgeon recommends intervention if dye does not completely transverse bowel overnight cont current care NPO 07/09/21 Potassium IV ordered Pain control per surgeon Continue telemetry monitoring until postop day 1 NG tube to remain in place Patient to remain NPO Plan of care reviewed with patient she is in agreement 07/10/2021 Potassium is at goal Pain is well controlled DC telemetry Pod 1 status post Hand assisted laparoscopic segmental small bowel resection with anastomosis Remain NPO NG tube to remain in place Ice chips Defer to surgeon further postop order 07/11/21 Mild electrolyte imbalance which has been repleted with magnesium and potassium Vital signs are stable Labs are otherwise unremarkable Continue pain control Advancing diet per surgical recommendations NG tube still in place clamped Continue current care KUB 07/12/21 POD 3 NGT out CLD cont supportive care percocet 5/325 q 4hrs dc mophine diet per surgeon ambulate in halls Subjective Date/time seen: 07/12/21 08:03 Patient doing very well tolerating clear liquid diet. she does complain of for pain control on IV morphine we discussed transitioning her to orals and she is in agreement. pt is encouraged to ambulate in valdes no bm no flatus no abd distention Exam Narrative: General: female lying supine with ice pack over abdomen Weight: 87.5kg. BMI: 28.5 HEENT: Normocephalic, atraumatic. EOMI. Sclerae anicteric. Neck: Supple. Respiratory: Symmetric chest rise no acute distress Gastrointestinal: Abdomen is soft and nondistended. She is tender to palpation throughout patient with ice pack to abdomen, surgical site looks clean dry with well approximated borders, BS + Skin: Warm and dry. No rash or lesions on limited exam. Extremities: No cyanosis, clubbing, or edema. Radial and pedal pulses intact. Neurological: Alert. Cranial nerves 2-12 grossly intact. No gross focal deficits to casual conversation. Psychiatric: Pleasant and cooperative with normal mood and affect. Judgment and insight intact. Objective Data Vital Signs Vital Signs: Vital Signs - 24 hr 07/11/21 10:50 07/11/21 14:00 07/11/21 16:00 Temperature 99.2 F 98.3 F 99.0 F Pulse Rate 95 87 86 Respiratory Rate 18 18 16 Blood Pressure 104/85 122/45 L 125/52 L Pulse Oximetry 94 94 95 07/11/21 20:00 07/12/21 00:00 07/12/21 04:00 Temperature 97.4 F L 97.8 F 97.1 F L Pulse Rate 93 87 83 Respiratory Rate 16 12 12 Blood Pressure 127/51 L 141/65 H 133/63 Pulse Oximetry 97 97 94 Intake/Output Intake/Output: Intake & Output 07/09/21 07/10/21 07/11/21 07/12/21 23:59 23:59 23:59 23:59 Intake Total 6900 3100 4100 Output Total 2150 925 1000 Balance 4750 2175 3100 Meds/Results Medications: Active Medications Generic Name Dose Route Start Last Admin Trade Name Freq PRN Reason Stop Dose Admin Benzocaine 1 lozenge 07/09/21 11:25 07/09/21 21:10 Benzocaine/Menthol (*Bkc) 18 Ea Lozenge PO 1 lozenge PRN PRN Administration Sore Throat Diphenhydramine HCl 25 mg 07/09/21 11:56 Diphenhydramine Hcl Inj 50 Mg/Ml Vial IV PUSH Q6H PRN Itching Enoxaparin Sodium 40 mg
--- NOTE | 2021-07-12 09:31 | PM.PNGS ---
Progress Note: A&P Assessment and Plan (1) Intussusception of small intestine: Onset Date: ~06/2021 Code(s): K56.1 - Intussusception Status: Acute Assessment and Plan: cont clears, await ROBF, OOB/IS Subjective Subjective Date/Time Seen: 07/12/21 09:31 feels better, NG out yesterday, having clears today Review of Systems Review of Systems: All systems reviewed & are unremarkable except as noted in HPI and below Exam Const: General: cooperative, comfortable and no acute distress Resp: Effort & Inspection: normal respiratory effort Auscultation: clear to auscultation bilaterally Cardio: Rate: regular rate Rhythm: regular rhythm GI: Inspection: normal to inspection and incision GI Palp: Yes Soft to palpation and Yes Tenderness to palpation present (GI) Objective Data Vital Signs Vital Signs: Vital Signs - 24 hr 07/11/21 10:50 07/11/21 14:00 07/11/21 16:00 Temperature 37.3 C 36.8 C 37.2 C Pulse Rate 95 87 86 Respiratory Rate 18 18 16 Blood Pressure 104/85 122/45 L 125/52 L Pulse Oximetry 94 94 95 07/11/21 20:00 07/12/21 00:00 07/12/21 04:00 Temperature 36.3 C L 36.6 C 36.2 C L Pulse Rate 93 87 83 Respiratory Rate 16 12 12 Blood Pressure 127/51 L 141/65 H 133/63 Pulse Oximetry 97 97 94 Intake/Output Intake/Output: Intake & Output 07/09/21 07/10/21 07/11/21 07/12/21 23:59 23:59 23:59 23:59 Intake Total 6900 3100 4100 1000 Output Total 2150 925 1000 Balance 4750 2175 3100 1000 Meds/Results Medications: Active Medications Generic Name Dose Route Start Last Admin Trade Name Freq PRN Reason Stop Dose Admin Benzocaine 1 lozenge 07/09/21 11:25 07/09/21 21:10 Benzocaine/Menthol (*Bkc) 18 Ea Lozenge PO 1 lozenge PRN PRN Administration Sore Throat Diphenhydramine HCl 25 mg 07/09/21 11:56 Diphenhydramine Hcl Inj 50 Mg/Ml Vial IV PUSH Q6H PRN Itching Enoxaparin Sodium 40 mg 07/10/21 09:00 07/11/21 08:28 Enoxaparin 40 Mg/0.4 Ml Syringe SUB-Q 40 mg DAILY ASHOK Administration Fentanyl Citrate 25 mcg 07/09/21 07:21 07/09/21 11:35 Fentanyl Citrate Inj (*Crx) 100 Mcg/2 Ml Vial IV PUSH 25 mcg Q2M PRN Administration Pain Sodium Chloride 1,000 mls @ 150 mls/hr 07/07/21 13:10 07/12/21 08:23 Normal Saline Iv IV CONT 150 mls/hr .Q6H40M ASHOK Administration Morphine Sulfate 2 mg 07/07/21 13:08 07/10/21 11:59 Morphine Sulfate (*Crx) 2 Mg/Ml Inj IV PUSH 2 mg Q2H PRN Administration Pain Rated 4-6 Morphine Sulfate 4 mg 07/07/21 13:08 07/12/21 05:52 Morphine Sulfate (*Crx) 4 Mg/Ml Inj IV PUSH 4 mg Q2H PRN Administration Pain Rated 7-10 Naloxone HCl 0.1 mg 07/09/21 11:56 Naloxone Hcl 0.4 Mg/Ml Vial IV PUSH Q2M PRN Opiate Reversal Ondansetron HCl 4 mg 07/07/21 13:08 07/08/21 21:34 Ondansetron Inj 4 Mg/2 Ml Vial IV PUSH 4 mg Q6H PRN Administration Nausea And Vomiting Ondansetron HCl 4 mg 07/09/21 07:21 Ondansetron Inj 4 Mg/2 Ml Vial IV PUSH ONCE PRN Nausea Pantoprazole Sodium 40 mg 07/07/21 21:00 07/11/21 20:31 Pantoprazole Sodium Iv 40 Mg Vial IV PUSH 40 mg Q12HR ASHOK Administration Sucralfate 1,000 mg 07/12/21 06:30 07/12/21 05:52 Sucralfate Susp 100 Mg/Ml 10 Ml Udc PO 1,000 mg TIDAC ASHOK Administration Radiology Results: ITS Impressions Chest X-Ray 07/07/21 06:43 IMPRESSION: 1. No acute cardiopulmonary disease. Abdomen/Pelvis CT 07/07/21 07:12 IMPRESSION: 1. Small bowel intussusception with 2.6 x 1.7 x 1.2 cm intramural lipoma as the lead mass. This is likely very recent as there is no significant upstream bowel dilation to suggest obstruction of any significant length of time. Line 2. Likely refluxed fluid either within a sliding-type hiatal hernia or patulous distal esophagus proximal to the ring of an adjustable gastric banding procedure which is in expected position. Upper GI Series
[2021-07-12 09:55] VITALS: BP 144/69; PULSE 79; RESP 16; TEMP 36.7; O2SAT 99
[2021-07-12] MEDS: ENOXAPARIN 40 MG/0.4 ML SYRINGE SUB-Q (10:10)
[2021-07-12] MEDS: PANTOPRAZOLE SODIUM IV 40 MG VIAL IV PUSH ×2 (10:10→20:02)
[2021-07-12] MEDS: oxyCODONE/ACETAMINOPHEN (*CRX) 5-325 MG TABLET 1 TABLET PO ×3 (11:38→20:02)
[2021-07-12 14:21] VITALS: BP 127/64; PULSE 75; RESP 16; TEMP 36.2; O2SAT 100
[2021-07-12 18:40] VITALS: BP 145/83; PULSE 89; RESP 18; TEMP 36.6; O2SAT 99
[2021-07-13] VITALS: BP 127/48; PULSE 76; RESP 17; TEMP 36.1; O2SAT 95
[2021-07-13] MEDS: oxyCODONE/ACETAMINOPHEN (*CRX) 5-325 MG TABLET 1 TABLET PO ×4 (00:02→17:13)
[2021-07-13] MEDS: SODIUM CHLORIDE 0.9% IV 1,000 ML 150 ML IV CONT (05:19)
[2021-07-13 05:35] LABS: Alanine Aminotransferase 27 U/L (4-35); Albumin Level 2.6 g/dL (3.5-5.1); Alkaline Phosphatase 121 U/L (38-126); Anion Gap 7 mmol/L (8-16); Aspartate Amino Transferase 49 U/L (14-36); Bilirubin,Total 0.7 mg/dL (0.2-1.3); Blood Urea Nitrogen 2 mg/dL (7-17); Calcium 7.8 mg/dL (8.4-10.2); Carbon Dioxide 23 mmol/L (22-30); Chloride 102 mmol/L (98-107); Estimated CRCL calculation 143 ml/min; Estimated Glomerular Filt Rate > 60; Glucose 88 mg/dL (65-110); Magnesium 1.7 mg/dL (1.6-2.3); Potassium 2.8 mmol/L (3.4-5.0); Sodium 132 mmol/L (137-145)
[2021-07-13] MEDS: POTASSIUM CHLORIDE 20 MEQ TABLET 60 MEQ PO (06:51)
[2021-07-13] MEDS: SUCRALFATE SUSP 100 MG/ML 10 ML UDC 1000 MG PO ×3 (06:51→15:39)
[2021-07-13] MEDS: PANTOPRAZOLE SODIUM IV 40 MG VIAL IV PUSH (09:23)
[2021-07-13] MEDS: BISACODYL 10 MG SUPPOSITORY RECTAL (09:24)
[2021-07-13] MEDS: ENOXAPARIN 40 MG/0.4 ML SYRINGE SUB-Q (09:24)
--- NOTE | 2021-07-13 10:57 | PM.IMPN ---
Progress Note: A&P Assessment and Plan (1) Hypokalemia: Code(s): E87.6 - Hypokalemia Status: Acute Assessment and Plan: Potassium needs to be replaced, continue liquid potassium SP Hand assisted laparoscopic segmental small bowel resection with anastomosis Pt has history of lap band surgery in the past. Plan dc on Tuesday morning. (2) Elevated blood pressure reading: Code(s): R03.0 - Elevated blood-pressure reading, without diagnosis of hypertension Status: Acute Assessment and Plan: Dc fluids bp is better today (3) Hyperglycemia: Code(s): R73.9 - Hyperglycemia, unspecified Status: Acute Assessment and Plan: Hbaic is 5.5 pt is not diabetic Additional Plan Subjective Date/time seen: 07/13/21 10:57 Interval history: 07/12/21 POD 3 NGT out CLD cont supportive care percocet 5/325 q 4hrs dc mophine diet per surgeon ambulate in halls 07/13/21 POD day4 Pt is status post Hand assisted laparoscopic segmental small bowel resection with anastomosis Pt has history of lap band surgery in the past. Pts potassium levels have been running low, glucose was low also and bp was low, now glucose and Bp is better. Review of Systems Review of Systems: All systems reviewed & are unremarkable except as noted in HPI and below Exam Const: General: cooperative and healthy appearing; No in distress Nutritional Appearance: overweight Orientation/consciousness: oriented to person HENMT: Head: normal to inspection Resp: Effort & Inspection: no respiratory distress Auscultation: no rhonchi and no wheezes Cardio: Rate: regular rate Rhythm: regular rhythm GI: Inspection: other (mid line incision fresh with glue dry healing well ) GI Palp: No abdominal tenderness, No Guarding due to palpation present (GI) and No Hepatomegaly present Auscultation: normal bowel sounds Neuro: General: oriented to person Objective Data Vital Signs Vital Signs: Vital Signs - 24 hr 07/12/21 14:21 07/12/21 18:40 07/13/21 00:00 Temperature 36.2 C L 36.6 C 36.1 C L Pulse Rate 75 89 76 Respiratory Rate 16 18 17 Blood Pressure 127/64 145/83 H 127/48 L Pulse Oximetry 100 99 95 Intake/Output Intake/Output: Intake & Output 07/10/21 07/11/21 07/12/2121 23:59 23:59 23:59 23:59 Intake Total 3100 4100 4650 1700 Output Total 925 1000 3450 2300 Balance 2175 3100 1200 -600 Meds/Results Medications: Active Medications Generic Name Dose Route Start Last Admin Trade Name Freq PRN Reason Stop Dose Admin Acetaminophen 1,000 mg 07/13/21 07:49 Acetaminophen Elixir 325 Mg/10.15 Ml Udc PO Q6H PRN Mild Pain (1-3) or Fever Benzocaine 1 lozenge 07/09/21 11:25 07/09/21 21:10 Benzocaine/Menthol (*Bkc) 18 Ea Lozenge PO 1 lozenge PRN PRN Administration Sore Throat Diphenhydramine HCl 25 mg 07/09/21 11:56 Diphenhydramine Hcl Inj 50 Mg/Ml Vial IV PUSH Q6H PRN Itching Enoxaparin Sodium 40 mg 07/10/21 09:00 07/13/21 09:24 Enoxaparin 40 Mg/0.4 Ml Syringe SUB-Q 40 mg DAILY ASHOK Administration Naloxone HCl 0.1 mg 07/09/21 11:56 Naloxone Hcl 0.4 Mg/Ml Vial IV PUSH Q2M PRN Opiate Reversal Ondansetron HCl 4 mg 07/07/21 13:08 07/08/21 21:34 Ondansetron Inj 4 Mg/2 Ml Vial IV PUSH 4 mg Q6H PRN Administration Nausea And Vomiting Ondansetron HCl 4 mg 07/09/21 07:21 Ondansetron Inj 4 Mg/2 Ml Vial IV PUSH ONCE PRN Nausea Oxycodone/Acetaminophen 1 tablet 07/12/21 09:40 07/13/21 06:56 Oxycodone/Acetaminophen (*Crx) 5-325 Mg Tablet PO 1 tablet Q4H PRN Administration Pain Rated 7-10 Pantoprazole Sodium 40 mg 07/07/21 21:00 07/13/21 09:23 Pantoprazole Sodium Iv 40 Mg Vial IV PUSH 40 mg Q12HR ASHOK Administration Potassium Chloride 40 meq 07/13/21 15:00 Potassium Chloride 20 Meq Packet (For Liquid) PO BID ASHOK Sucralfate 1,000 mg
[2021-07-13 14:00] VITALS: BP 106/57; PULSE 85; RESP 18; TEMP 36.3; O2SAT 99
--- NOTE | 2021-07-13 14:10 | PM.PNGS ---
Progress Note: A&P Assessment and Plan (1) Intussusception of small intestine: Onset Date: ~06/2021 Code(s): K56.1 - Intussusception Status: Acute Assessment and Plan: I will advance to full liquids., await ELICIA HUNT/IS Will give patient a suppository today between breakfast and lunch. (Will not count that as a spontaneous bowel movement to advance diet closed). If patient continuing to tolerate diet well and passing gas will advance her to a soft diet for breakfast in the morning sticking to full liquids the night at supper. Encourage patient to be up walking as this will help with her bowels. Discussed home going with her. May be able to be discharged after breakfast tomorrow if his had a bowel movement spontaneously. Will replace potassium with liquid potassium also discussed home going pain medication with the patient she is swallowing the Percocet tablets okay but I encouraged her to see if she could get by with 1000 mg of liquid Tylenol she would be able to by Children's Tylenol then and measure that out to take 1000 mg every 6-8 hours p.r.n. for pain when she goes home. (2) History of laparoscopic adjustable gastric banding: Code(s): Z98.84 - Bariatric surgery status Status: Acute Assessment and Plan: This still affecting her care in that she has difficulty swallowing the large potassium pills that were ordered for this morning. Will try liquid. Will also try seeing if we can get a Tylenol formulation for to take liquid when she goes home. I will encourage her after my 1st postop visit to again set up an appointment with the surgeon at [facility] that she has seen for lap band adjustments in the recent past and have him re-evaluate her current status with the lap band and whether not it should be completely deflated. (3) Hypokalemia: Code(s): E87.6 - Hypokalemia Status: Acute Assessment and Plan: Patient again hypokalemic. Replacement ordered. Subjective Subjective Date/Time Seen: 07/13/21 14:10 Post Op day: 4 (Status post hand assisted laparoscopic small bowel resection with anastomosis) Patient reports: feels better and tolerating liquids well Interval history: patient did not ask about pathology report but it is back. I will discuss it with her in the office on her return visit. There was no cancer. Patient has not yet had a bowel movement therefore will continue liquids but increased to full liquids since she is passing some gas now. She has good bowel sounds on exam and I think she will probably progress as per normal. No problems with her incisions no significant drainage no signs of infection per nurse Review of Systems Review of Systems: All systems reviewed & are unremarkable except as noted in HPI and below Constitutional: Constitutional: Reports as per HPI, Denies chills, Denies fatigue and Denies fever(s) Exam Const: General: cooperative, comfortable, no acute distress, alert, awake, acute distress mild and uncomfortable Nutritional Appearance: average body habitus Orientation/consciousness: patient oriented x3 HENMT: Head: normal to inspection, normocephalic and atraumatic Ears: hearing grossly normal bilaterally Mouth: Yes moist mucous membranes Chest: Chest palpation & inspection: normal inspection of the chest Resp: Effort & Inspection: normal respiratory effort, able to speak in complete sentences and no respiratory distress Auscultation: clear to auscultation bilaterally Cardio: Jugular venous distension: no JVD Rate: regular rate Rhythm: regular rhythm Heart sounds: S1 normal heart sound present and S2 normal heart sound present GI: Inspection: incision ( clean and dry with no signs of infection) GI Palp: Yes abdominal tenderness ( mild near midline wound), Yes Soft to palpation and No Guarding due to palpation present (GI) Auscultation: normoactive bowel sounds Skin: General skin exam: normal color and no rashes or lesions no
[2021-07-13] MEDS: POTASSIUM CHLORIDE 20 MEQ PACKET (FOR LIQUID) 40 MEQ PO (15:39)
[2021-07-13 21:03] VITALS: BP 130/64; PULSE 82; RESP 16; TEMP 36.3; O2SAT 98
[2021-07-14 05:03] VITALS: BP 143/63; PULSE 73; RESP 17; TEMP 36.5; O2SAT 98
[2021-07-14 05:31] LABS: Mean Platelet Volume 10.2 fl (7.4-10.4); Platelet Count Result 256 k/mm3 (150-375)
[2021-07-14 05:48] LABS: Anion Gap 6 mmol/L (8-16); Blood Urea Nitrogen 2 mg/dL (7-17); Calcium 8.2 mg/dL (8.4-10.2); Carbon Dioxide 28 mmol/L (22-30); Chloride 100 mmol/L (98-107); Estimated CRCL calculation 127 ml/min; Estimated Glomerular Filt Rate > 60; Glucose 99 mg/dL (65-110); Potassium 3.5 mmol/L (3.4-5.0); Sodium 134 mmol/L (137-145)
[2021-07-14] MEDS: ONDANSETRON INJ 4 MG/2 ML VIAL IV PUSH (07:34)
[2021-07-14] MEDS: ACETAMINOPHEN ELIXIR 325 MG/10.15 ML UDC 1000 MG PO (07:34)
[2021-07-14] MEDS: SUCRALFATE SUSP 100 MG/ML 10 ML UDC 1000 MG PO ×2 (08:43→11:35)
[2021-07-14] MEDS: POTASSIUM CHLORIDE 20 MEQ PACKET (FOR LIQUID) 40 MEQ PO (10:14)
[2021-07-14] MEDS: ENOXAPARIN 40 MG/0.4 ML SYRINGE SUB-Q (10:15)
[2021-07-14] MEDS: PANTOPRAZOLE 40 MG TABLET PO (10:15)
--- NOTE | 2021-07-14 10:52 | PCNWS ---
Weekly nutritional screen. Patient is tolerating current diet with adequate intake. Patient is requesting a diet changed to heart heart healthy. Dr. Patel is aware. No weight loss reported. No nutritional needs at this time.
--- NOTE | 2021-07-14 11:17 | PM.DS ---
DS: Admitting Diagnosis Discharge Date 07/14/2021 Admitting Diagnosis Small-bowel intussusception DS: Discharge Diagnosis Discharge Diagnosis (1) Intussusception of small intestine: Onset Date: ~06/2021 Code(s): K56.1 - Intussusception Status: Acute Assessment and Plan: status post small bowel resection, continue routine postoperative care, home with p.o. analgesia, Protonix, sucralfate, KCL, follow-up in 2 weeks DS: Summary Hospital Course Reason for hospitalization: small-bowel intussusception causing small bowel obstruction Hospital Course: The patient is a 61-year-old female that presented to the emergency department complaining of severe abdominal pain. Workup in the emergency department, including imaging, was significant for small bowel intussusception causing obstruction. The patient was admitted to the surgical service and the medical service was consulted for medical care. Over the next few days, the patient did not really improve and subsequent small bowel series continued to show intussusception. On 07/09, to the operating room and hand assisted laparoscopic small bowel resection was done, please see full operative report for details of that procedure. The patient did well and was transferred back to the floor postoperative. Over the next few days, the patient continued to improve and had subsequent return of bowel function. She was able to be advanced on her diet, which she is tolerating without difficulty at the time of her discharge. The patient's pain has been well controlled with p.o. analgesia. The patient has been up and ambulating without difficulty. The patient will now be discharged home with p.o. analgesia, Protonix, potassium, and sucralfate. She will follow up with Dr. Lamas in 2 weeks. Status at Discharge Functional status at discharge: independent ambulation Overall status at discharge: patient is progressing back to baseline Time Spent with Patient Time attestation: Total time spent providing and/or coordinating discharge services: Time spent: Less than 30 minutes Exam Const: General: cooperative, healthy appearing, comfortable and no acute distress Resp: Effort & Inspection: normal respiratory effort Auscultation: clear to auscultation bilaterally Cardio: Rate: regular rate Rhythm: regular rhythm GI: Inspection: normal to inspection and incision GI Palp: No abdominal tenderness, Yes Soft to palpation, No Tenderness to palpation present (GI), No Guarding due to palpation present (GI) and No Rigid due to palpation Other: incisions C/D/I Skin: General skin exam: normal color and no rashes or lesions noted Neuro: General: patient oriented x3 and CN's II-XI intact bilaterally Extrem: General: normal to inspection and full ROM Psych: Appearance: grossly normal DS: Data Data Completed and Pending Completed studies during hospitalization: Pending at discharge 07/09/21 09:43 Surgical [PTH] Routine Labs on day of discharge: Labs from last 24 hours 07/14/21 07/14/21 05:01 05:01 Plt Count 256 MPV 10.2 Sodium 134 L Potassium 3.5 Chloride 100 Carbon Dioxide 28 Anion Gap 6 L BUN 2 L Creatinine 0.40 L Estim Creat Clear Calc 127 Estimated GFR > 60 Glucose 99 Calcium 8.2 L Discharge Plan Discharge Attending physician on discharge: Rudy Lamas Consulting providers: Antonio Sanderson Discharging Clinician: Mary Kay Centeno Anticipated Discharge Date/Time: 07/14/21 14:23 Patient Disposition: Home, Self-Care Activity: may shower Diet: as tolerated Discharge Instructions: DISCHARGE INSTRUCTION SHEET FOR LAPAROSCOPIC SURGERIES DR. LAMAS PATIENT TO TAKE HOME 1. May shower after surgery over incisions. Do not submerge in water x 2weeks. 2. Call office for: Wound increasingly painful or bleeding Vomiting Fever of greater than 101 degrees 3. Expect some blood on dressing and
--- NOTE | 2021-07-14 11:32 | PM.IMPN ---
Progress Note: A&P Assessment and Plan (1) Hypokalemia: Code(s): E87.6 - Hypokalemia Status: Acute Assessment and Plan: Potassium is corrected SP Hand assisted laparoscopic segmental small bowel resection with anastomosis Pt has history of lap band surgery in the past. Plan dc today as per surgery (2) Elevated blood pressure reading: Code(s): R03.0 - Elevated blood-pressure reading, without diagnosis of hypertension Status: Acute Assessment and Plan: Dc fluids bp is better today (3) Hyperglycemia: Code(s): R73.9 - Hyperglycemia, unspecified Status: Acute Assessment and Plan: Hbaic is 5.5 pt is not diabetic Additional Plan Subjective Date/time seen: 07/14/21 11:32 Interval history: 07/12/21 POD 3 NGT out CLD cont supportive care percocet 5/325 q 4hrs dc mophine diet per surgeon ambulate in halls 07/13/21 POD day4 Pt is status post Hand assisted laparoscopic segmental small bowel resection with anastomosis Pt has history of lap band surgery in the past. Pts potassium levels have been running low, glucose was low also and bp was low, now glucose and Bp is better. 07/14/21 POD day 5 Pt can be discharged as per surgery. Pt potassium is stable. Pt BP glucose is good, pt tolerating diet can advance today and DC. Review of Systems Review of Systems: All systems reviewed & are unremarkable except as noted in HPI and below Exam Narrative: Const: General: cooperative and healthy appearing; No in distress Nutritional Appearance: overweight Orientation/consciousness: oriented to person HENMT: Head: normal to inspection Resp: Effort & Inspection: no respiratory distress Auscultation: no rhonchi and no wheezes Cardio: Rate: regular rate Rhythm: regular rhythm GI: Inspection: other (mid line incision fresh with glue dry healing well ) GI Palp: No abdominal tenderness, No Guarding due to palpation present (GI) and No Hepatomegaly present Auscultation: normal bowel sounds Neuro: General: oriented to person Objective Data Vital Signs Vital Signs: Vital Signs - 24 hr 07/13/21 14:00 07/13/21 21:03 07/14/21 05:03 Temperature 36.3 C L 36.3 C L 36.5 C Pulse Rate 85 82 73 Respiratory Rate 18 16 17 Blood Pressure 106/57 L 130/64 143/63 H Pulse Oximetry 99 98 98 Intake/Output Intake/Output: Intake & Output 07/11/21 07/12/21 07/13/21 07/14/21 23:59 23:59 23:59 23:59 Intake Total 4100 4650 2820 750 Output Total 1000 3450 2550 1200 Balance 3100 1200 270 -450 Meds/Results Medications: Active Medications Generic Name Dose Route Start Last Admin Trade Name Freq PRN Reason Stop Dose Admin Acetaminophen 1,000 mg 07/13/21 07:49 07/14/21 07:34 Acetaminophen Elixir 325 Mg/10.15 Ml Udc PO 1,000 mg Q6H PRN Administration Mild Pain (1-3) or Fever Benzocaine 1 lozenge 07/09/21 11:25 07/09/21 21:10 Benzocaine/Menthol (*Bkc) 18 Ea Lozenge PO 1 lozenge PRN PRN Administration Sore Throat Enoxaparin Sodium 40 mg 07/10/21 09:00 07/14/21 10:15 Enoxaparin 40 Mg/0.4 Ml Syringe SUB-Q 40 mg DAILY ASHOK Administration Naloxone HCl 0.1 mg 07/09/21 11:56 Naloxone Hcl 0.4 Mg/Ml Vial IV PUSH Q2M PRN Opiate Reversal Ondansetron HCl 4 mg 07/07/21 13:08 07/14/21 07:34 Ondansetron Inj 4 Mg/2 Ml Vial IV PUSH 4 mg Q6H PRN Administration Nausea And Vomiting Oxycodone/Acetaminophen 1 tablet 07/12/21 09:40 07/13/21 17:13 Oxycodone/Acetaminophen (*Crx) 5-325 Mg Tablet PO 1 tablet Q4H PRN Administration Pain Rated 7-10 Pantoprazole Sodium 40 mg 07/14/21 09:00 07/14/21 10:15 Pantoprazole 40 Mg Tablet PO 40 mg QAM ASHOK Administration Potassium Chloride 40 meq 07/13/21 15:00 07/14/21 10:14 Potassium Chloride 20 Meq Packet (For Liquid) PO 40 meq BID ASHOK Administration Sucralfate 1,000 mg 07/12/21 06:30 07/14/21 08:43 Sucralfate Carolee
== END 2021-07-14 13:40 | disposition home or self-care (01) | DRG 331 ==
LOC: ANHED 05:13 → ANH2MED 10:31
PROVIDERS: Emergency Medicine; Nurse Practitioner Family; Physician Assistant; Admitting Provider Surgery; Emergency Provider Emergency Medicine; PCP Family Medicine; Visit Provider Family Medicine
PROC: 0DB80ZZ Excision of Small Intestine, Open Approach (ICD-10-PCS; CPT 49320; principal; 2021-07-09 07:30)
DX: K56.1 Intussusception (principal); E87.6 Hypokalemia; R03.0 Elevated blood-pressure reading, without diagnosis of hypertension; R73.9 Hyperglycemia, unspecified; M17.12 Unilateral primary osteoarthritis, left knee; Z87.891 Personal history of nicotine dependence; Z98.84 Bariatric surgery status
CPT/HCPCS: 36415; 71046; 74018; 74019; 74177; 74240; 74248; 80048; 80053; 81001; 81025; 83036; 83605; 83690; 83735; 84132; 84484; 85014; 85018; 85025; 85027; 85049; 88307; 93005; 96361; 96365; 96366; 96375; 96376; 99285; A9270; C9113; G0378; J0131; J0171; J1100; J1200; J1650; J2250; J2270; J2370; J2405; J2704; J2710; J3010; J3475; J3480; J7030; J7120; Q9967

== ENCOUNTER 2021-07-28 10:35 | Outpatient (CLI) | payer BC, SELFPAY ==
[2021-07-28 11:36] LABS: Add Urine Microscopic? NO; Appearance Urine Clear (Clear); Bilirubin Urine Negative (Negative); Blood Urine Negative (Negative); Color Urine Yellow (Yellow); Glucose Urine UA Negative (Negative); Ketones Urine Negative (Negative); Leukocyte Esterase Ur Negative LEU/UL (Negative); Nitrate Urine Negative (Negative); Protein Urine Negative (Negative); Specific Grav Ur 1.021 (1.001-1.035); Urobilinogen Urine Negative mg/dL (<2.0)
== END 2021-07-28 10:36 | disposition home or self-care (01) ==
PROVIDERS: PCP Family Medicine; Visit Provider Surgery
DX: R35.1 Nocturia (principal)
CPT/HCPCS: 81003

== ENCOUNTER 2022-02-12 12:48 | Outpatient (CLI) | payer BC, SELFPAY ==
--- NOTE | ~2022-02-12 | CT_ITS ---
EXAMINATION: CT abdomen pelvis wo con DATE: 02/12/2022 13:11 INDICATION: Left lower quadrant abdominal pain. TECHNIQUE: Computed tomography (CT) of the abdomen and pelvis was performed without intravenous contr ast. Automated exposure control and iterative reconstruction technique were employed. The dose-length product was 812.02 mGy-cm. COMPARISON: CT abdomen and pelvis 07/07/2021 FINDINGS: The visualized portions of the lung bases demonstrate mild atelectasis. No pleural effusion . The heart size is normal. No pericardial effusion. There is fluid in the esophagus. There is chroni c wall thickening of the distal esophagus. There is a lap band in expected position. The liver, gallb ladder, spleen, pancreas, adrenal glands, and kidneys are normal. There is no urolithiasis. There is an umbilical hernia containing nonobstructed small bowel. There are no dilated loops of bowel. The ap pendix is not visualized. There are no pathologically enlarged lymph nodes. There is no free intraper itoneal fluid. There is a left inguinal hernia containing fat. There is lumbar levoscoliosis and irwin re spondylosis. There is mild thoracic spondylosis. IMPRESSION: 1. Umbilical hernia containing nonobstructed small bowel. 2. Left inguinal hernia containing fat. 3. Chronic wall thickening of the distal esophagus, consistent with esophagitis. Reviewed, dictated and finalized at location A. IMPRESSION: 1. Umbilical hernia containing nonobstructed small bowel. 2. Left inguinal hernia containing fat. 3. Chronic wall thickening of the distal esophagus, consistent with esophagitis .
== END 2022-02-12 12:49 ==
LOC: MICIMG 12:49
PROVIDERS: PCP Family Medicine; Visit Provider Family Medicine
DX: R10.9 Unspecified abdominal pain (principal); K42.9 Umbilical hernia without obstruction or gangrene; M47.815 Spondylosis without myelopathy or radiculopathy, thoracolumbar region; K40.90 Unilateral inguinal hernia, without obstruction or gangrene, not specified as recurrent; M41.9 Scoliosis, unspecified
CPT/HCPCS: 74176

== ENCOUNTER 2022-04-05 10:29 | Outpatient (CLI) | payer BC, SELFPAY ==
--- NOTE | ~2022-04-05 | XR_ITS ---
EXAMINATION: XR chest 2V DATE: 04/05/2022 11:30 INDICATION: Abdominal pain TECHNIQUE: PA and lateral views of the chest are obtained. COMPARISON: 07/07/2021 FINDINGS: The lungs are free of acute opacities. No pleural effusion or pneumothorax. The cardiomedia stinal silhouette is normal. There is moderate thoracic spondylosis. A gastric lap band is noted. IMPRESSION: 1. No acute cardiopulmonary abnormality. Reviewed, dictated and finalized at location B.
--- NOTE | 2022-04-05 11:07 | ECG_ITS ---
Measurements Intervals [place] Rate: 55 P: 64 VT: 150 QRS: 7 QRSD: 85 T: 17 QT: 421 QTc: 403 Interpretive Statements SINUS BRADYCARDIA DELAYED PRECORDIAL R/S TRANSITION LOW QRS VOLTAGE IN PRECORDIAL LEADS BASELINE ARTIFACT- I, II, III, AVR, AVL, AVF, V4-V6 BORDERLINE ECG COMPARED TO ECG 07/07/2021 05:37:10 SINUS BRADYCARDIA NOW PRESENT Electronically Signed On 04-05-2022 12:41:27 CDT by Abilio Sparks D.O.
[2022-04-05 11:38] LABS: Basophils Absolute Auto 0.1 K/mm3 (0.0-0.1); Eosinophils Absolute Auto 0.2 K/mm3 (0-0.3); Eosinophils Percent Auto 3.3 % (0-4.4); Hematocrit 41.2 % (37.0-47.0); Immature Granulocyte Absolute 0.02 K/mm3 (0.00-0.031); Immature Granulocyte Percent A 0.3 % (0-0.5); Lymphocytes Absolute Auto 1.55 K/mm3 (0.9-3.2); Lymphocytes Percent Auto 26.5 % (18.3-44.2); Mean Corpuscular HGB Conc 31.6 g/dl (32-36); Mean Corpuscular Volume 85.7 fl (80-100); Mean Platelet Volume 10.1 fl (7.4-10.4); Monocytes Absolute Auto 0.5 K/mm3 (0.1-0.6); Monocytes Percent Auto 7.9 % (2.6-8.5); Neutrophils Absolute Auto 3.6 K/mm3 (1.3-6.7); Platelet Count Result 276 k/mm3 (150-375); Red Blood Count 4.81 M/mm3 (4.2-5.4); Red Cell Distribution Width 14.5 % (11.5-14.5); White Blood Count 5.8 K/mm3 (4.5-10.0)
[2022-04-05 11:47] LABS: Anion Gap 9 mmol/L (8-16); Blood Urea Nitrogen 16 mg/dL (7-17); Calcium 9.1 mg/dL (8.4-10.2); Carbon Dioxide 27 mmol/L (22-30); Chloride 103 mmol/L (98-107); Estimated Glomerular Filt Rate > 60; Glucose 98 mg/dL (65-110); Potassium 4.2 mmol/L (3.4-5.0); Sodium 139 mmol/L (137-145)
== END 2022-04-05 10:30 | disposition home or self-care (01) ==
LOC: ANHSURGERY 10:37
PROVIDERS: PCP Family Medicine; Visit Provider Surgery
DX: K43.2 Incisional hernia without obstruction or gangrene (principal); R94.31 Abnormal electrocardiogram [ECG] [EKG]
CPT/HCPCS: 36415; 71046; 80048; 85025; 86850; 86900; 86901; 93005

== ENCOUNTER 2022-04-07 00:42 | Day surgery (SDC) | payer BC, SELFPAY ==
[2022-04-02 15:10] VITALS: BMI 28.8
--- NOTE | 2022-04-02 15:21 | PC.NURSE ---
Report to the Outpatient Waiting Room, entrance under the green pavilion located off [facility], at time 0600_ on date _04/07/22_. OR Time: 0730_. Time changes happen often and if your time is changed the preop area will call you the afternoon before. - You and your visitor will be asked to self-screen and do not enter if you have any COVID symptoms. - Only one visitor and NO children visitors are allowed at this time. - The patient visitor is requested to leave or wait in car when not with patient due to restrictions. - A mask is required within the hospital. Patients may have clear liquids (water, carbonated beverages, clear teas, apple juice) until 3 hours prior to surgery with a maximum of 20 ounces. - No food from midnight until time of surgery - Infants may have breast milk until 4 hours before surgery, infant formula 6 hours prior to surgery. - Children will be allowed to drink immediately following surgery. If applicable, please bring a bottle or sippy cup to assist with drinking. Juice, water, soda, and popsicles are readily available. For infants on formula, please bring formula the day of surgery. Pacifiers are allowed. Take the following medications with a SIP of water the morning of surgery: ____ALPRAZOLAM, CITALOPRAM,PANTOPRAZOLE Medications to discontinue per physician NONE Date to take last dose NONE Please no make-up, nail armenian, hairspray, perfume, deodorant, or body powder the day of surgery. No jewelry (including any body piercings) or valuables the day of surgery, leave them at home. Please take a shower or bath the night before, or the morning of, surgery with HIBICLENS, an antibacterial soap. Wear comfortable, loose fitting clothing. Children are encouraged to wear pajamas. - Jewelry must be removed prior to entering the operating room. Rings and piercings that are not removed may be cut off. - The hospital will not accept responsibility for valuables. - Please leave all valuables, including medications, at home the day of surgery. If you are going home after surgery, a licensed local owner operator truck driver must drive you home. - NO public transportation without another adult. - We recommend that an adult stay with you for 24 hours following discharge. - We also recommend that you do not drive, make important decision, drink alcoholic beverages, or take any drugs that were not prescribed by your health care provider for at least 24 hours after your discharge time. For Pediatric surgeries, we recommend two adults accompany the child home (only one inside the building at this time). Follow any additional instructions given to you from your surgeon. If you or anyone in your household have experienced Covid symptoms in the past week, please notify your surgeon or the nurse liaison at the phone number below for possible testing. Telephone instructions given to __PATIENT_and asked if any additional questions and then verbalized understanding. Patient advised to call surgeon office or pre surgery nurse liaison [phone] if any additional questions.
--- NOTE | 2022-04-06 12:35 | WPDANESEPPF ---
Anes - Initial Pre Proc Eval Procedure: Operation Date: 04/07/22 07:30 Proposed Procedures p Laparoscopic Repair Incisional Hernia with Mesh - Adilson Vazquez MD Date/Time: 04/06/22 12:35 Surgeon: Adilson Vazquez MD Pre Op Diagnosis: incisional hernia Patient Data Age: 61 Gender: F Height: 1.73 m Weight: 86 kg Allergies Allergy/AdvReac Type Severity Reaction Status Date / Time No Known Allergies Allergy Verified 04/02/22 15:08 Home Medications Medication Instructions Recorded Confirmed Type pantoprazole 40 mg tablet,delayed See Rx Instructions .Route 08/10/21 04/02/22 Rx release .COMPLEX #30 tabs citalopram 20 mg tablet 20 mg PO DAILY 02/24/22 04/02/22 History alprazolam 0.25 mg tablet 0.25 mg PO DAILY 03/04/22 04/02/22 History trazodone 50 mg tablet 50 mg PO QHS PRN SLEEPLESSNESS 03/04/22 04/02/22 History Patient hx anesthesia problems: none Family hx anesthesia problems: none Results Review: All pre-operative results and documents have been reviewed as part of the pre-operative evaluation. [facility] Past Medical History Medical History (Updated 04/06/22 @ 14:03 by Adilson Vazquez MD) Anxiety Depression GERD (gastroesophageal reflux disease) Intussusception of intestine Intussusception of small intestine (~06/2021) Osteoarthritis of left knee PONV (postoperative nausea and vomiting) Surgical History Surgical History (Updated 04/06/22 @ 14:04 by Adilson Vazquez MD) History of arthroscopic knee surgery History of bowel resection s/p hand assisted lap segmental small bowel resection w anastomosis 07/09/21 History of laparoscopic adjustable gastric banding (2007) History of laparoscopic adjustable gastric banding History of right knee joint replacement Family History Family History Father Heart disease Mother Diabetes mellitus Other No pertinent family history Social History Social History Social History: Surrogate decision maker: Marielena Burton, sister. Code status: Full code. caffeine use- 2 cups of coffee per day/ 1 cup of tea per day Smoking packs per day: 1 Smoking cigarettes per day: 20.0 Years smoked: 20 Smoking pack-years: 20.00 Smoking status: Former smoker Tobacco type: cigarettes Smoking end date: 07/25/03 Additional smoking assessment comments: QUIT 1999 Alcohol intake: current Drinks per week: 2 Alcohol use details: beer Substance use: never Substance use type: does not use Living arrangements: with family Additional living arrangements comments: The patient lives in [place] with her adopted child and 2 foster children. 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 Informed Consent: The patient's anesthetic plan and its attendant risks and benefits were discussed with the patient/family/POA. Questions were solicited and answers provided to the satisfaction of the patient/family/POA.
--- NOTE | 2022-04-06 13:57 | PM.IMHP ---
H&P: HPI History of Present Illness Date/Time: 04/06/22 13:57 Chief Complaint: incisional hernia Narrative: Patient is a 61-year-old woman who in December presented with small bowel intussusception. She had a hand access laparoscopic small bowel resection. Pathology showed a lipoma. She then developed pain at the hand access port. CT scan showed an umbilical hernia as well as an incisional hernia. Incisional hernias just below the umbilicus. Patient also has a history of laparoscopic adjustable gastric banding in 2007. She was seen in the office and is taken to surgery now for laparoscopic repair of her incisional and umbilical hernia. Review of Systems Review of Systems: All systems reviewed & are unremarkable except as noted in HPI and below (HPI and those items noted below) Constitutional: Constitutional: Denies chills and Denies fever(s) Cardiovascular: Cardiovascular: Denies chest pain, Denies diaphoresis, Denies dyspnea and Denies paroxysmal nocturnal dyspnea Respiratory: Respiratory: Denies chest congestion, Denies cough and Denies dyspnea Integumentary/Breasts: Skin/Breast: Denies lesions and Denies rash PMFSH Past Medical History Medical History (Updated 04/06/22 @ 14:03 by Adilson Vazquez MD) Anxiety Depression GERD (gastroesophageal reflux disease) Intussusception of intestine Intussusception of small intestine (~06/2021) Osteoarthritis of left knee PONV (postoperative nausea and vomiting) Surgical History Surgical History (Updated 04/06/22 @ 14:04 by Adilson Vazquez MD) History of arthroscopic knee surgery History of bowel resection s/p hand assisted lap segmental small bowel resection w anastomosis 07/09/21 History of laparoscopic adjustable gastric banding (2007) History of laparoscopic adjustable gastric banding History of right knee joint replacement Family History Family History Father Heart disease Mother Diabetes mellitus Other No pertinent family history Social History Social History Social History: Surrogate decision maker: Marielena Burton, sister. Code status: Full code. caffeine use- 2 cups of coffee per day/ 1 cup of tea per day Smoking packs per day: 1 Smoking cigarettes per day: 20.0 Years smoked: 20 Smoking pack-years: 20.00 Smoking status: Former smoker Tobacco type: cigarettes Smoking end date: 07/25/03 Additional smoking assessment comments: QUIT 1999 Alcohol intake: current Drinks per week: 2 Alcohol use details: beer Substance use: never Substance use type: does not use Additional living arrangements comments: The patient lives in [place] with her adopted child and 2 foster children. 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 Gender identity (if verbalized by the patient): Female Meds Home Medications and Allergies Home Medications Medication Instructions Recorded Confirmed Type pantoprazole 40 mg tablet,delayed See Rx Instructions .Route 08/10/21 04/02/22 Rx release .COMPLEX #30 tabs citalopram 20 mg tablet 20 mg PO DAILY 02/24/22 04/02/22 History alprazolam 0.25 mg tablet 0.25 mg PO DAILY 03/04/22 04/02/22 History trazodone 50 mg tablet 50 mg PO QHS PRN SLEEPLESSNESS 03/04/22 04/02/22 History Allergies Allergy/AdvReac Type Severity Reaction Status Date / Time No Known Allergies Allergy Verified 04/02/22 15:08 Exam Const: General: comfortable, no acute distress, alert and awake HENMT: Head: normocephalic and atraumatic Mouth: Yes Normal oral and palatal mucosa present Eyes: Conjunctivae: conjunctivae normal Pupils: Equal, round and reactive pupils present EOM: EOMs intact bilaterally Neck: Neck: normal visual inspection, no lymphadenopathy and nontender Resp: Effort & Insp
[2022-04-07 07:00] VITALS: BP 104/42; PULSE 68; RESP 16; TEMP 36; O2SAT 100
[2022-04-07] MEDS: LACTATED RINGERS 1,000 ML 30 ML IV CONT (07:00)
[2022-04-07] MEDS: KETOROLAC 15 MG/ML VIAL (*BKC) IV PUSH (07:01)
[2022-04-07] MEDS: ACETAMINOPHEN 500 MG TABLET 1000 MG PO (07:01)
--- NOTE | 2022-04-07 07:09 | WPDHPUPDATE1 ---
History and Physical Update Update Date/Time: 04/07/22 07:09 History and Physical has been reviewed, including an updated exam of the patient. There are NO changes in the patient's condition. Risks, benefits, and alternatives have been discussed and questions answered. Patient agrees to proceed with procedure.
[2022-04-07] MEDS: SCOPOLAMINE 1.5 MG PATCH TRANSDERM (07:13)
[2022-04-07] MEDS: ceFAZolin 2 GM/D5W 50 ML 2 GM/50 ML BAG IVPB (07:24)
[2022-04-07] MEDS: BUPIVACAINE/EPINEPHRINE 0.25% 50 ML VIAL INFILTRATE (08:22)
[2022-04-07 08:36] VITALS: BP 124/72; PULSE 84; RESP 20; TEMP 36.4; O2SAT 100
[2022-04-07 08:50] VITALS: BP 109/54; PULSE 67; RESP 15; O2SAT 95
--- NOTE | 2022-04-07 08:52 | PM.DS ---
DS: Admitting Diagnosis Discharge Date 04/07/2022 Admitting Diagnosis Incisional and umbilical hernias History of laparoscopic adjustable gastric band DS: Discharge Diagnosis Discharge Diagnosis (1) Incisional hernia without mention of obstruction or gangrene: Code(s): K43.2 - Incisional hernia without obstruction or gangrene Status: Chronic Assessment and Plan: Hernia very wide mouth. Measured 9 cm in with which was not evident on exam or CT scan. Laparoscopic repair not appropriate. Procedure aborted after diagnostic laparoscopy to discuss further but tentatively plan open incisional hernia repair with mesh with bilateral transversus abdominis myofascial flap advancement. After discussing this with patient's sister, next of kin, I felt it would be inappropriate to provide this surgery without any preoperative discussion considering it is an elective procedure. (2) History of laparoscopic adjustable gastric banding: Code(s): Z98.84 - Bariatric surgery status Status: Chronic Assessment and Plan: Tubing for gastric band evident at laparoscopy. DS: Summary Hospital Course Hospital Course: Patient taken to surgery on 04/07/2022 with plans for laparoscopic repair incisional hernia in the infraumbilical location along with repair of an umbilical hernia. By exam and CT scan this was a fairly small hernia. At laparoscopy, however, he the hernia was very wide mouth. It was measured and was found to be 9 cm wide at least. This would not be satisfactory for laparoscopic repair. Patient had not had any discussion of open incisional hernia repair or myofascial flap advancement. Procedure was terminated after laparoscopy and patient will be discharged to follow up and discuss appropriate hernia repair in the office. This will be rescheduled after further discussion. Status at Discharge Overall status at discharge: patient is progressing back to baseline Time Spent with Patient Time attestation: Total time spent providing and/or coordinating discharge services: Time spent: Less than 30 minutes Discharge Plan Discharge Patient Disposition: Home, Self-Care Discharge Instructions: 1. May shower the day after surgery over incisions. 2. Call office for: -Wound increasingly painful or bleeding -Vomiting -Fever of greater than 101 degrees 3. Expect some blood on dressing or on skin. 4. If no bowel movement for three days, take 1 oz. (30 ml) Milk of Magnesia; if no results, take Fleets enema. 5. No heavy lifting > 15-20 pounds for 2 weeks. 6. No driving for 2 days or while taking narcotic pain medications. 7. Up walking 10-30 minutes three times per day. 8. Resume previous home medications. 9. Follow-up in office for wound check and to discuss different approach for hernia repair 10. Oral pain medications prescription to be sent home with patient. 11. NUTRITION: Start out by drinking fluids and increase your diet as tolerated. If you experience nausea, try dry toast, crackers, and 7-UP. If nausea or vomiting persists, contact your surgeon?s office. Stand Alone Forms: General Discharge Instructions Follow-up/Referrals: Adilson Vazquez MD [Physician] - 1 Week Discharge Medications: New hydrocodone-acetaminophen 5-325 mg tablet 1 - 2 tablet PO Q6H PRN (Reason: pain) Qty: 7 0RF ibuprofen 600 mg tablet 600 mg PO Q6H PRN (Reason: pain) Qty: 14 0RF Continued trazodone 50 mg tablet 50 mg PO QHS PRN (Reason: SLEEPLESSNESS) alprazolam 0.25 mg tablet 0.25 mg PO DAILY citalopram 20 mg tablet 20 mg PO DAILY pantoprazole 40 mg tablet,delayed release (DR/EC) See Rx Instructions .ROUTE .COMPLEX Qty: 30 0RF Dose Instruction: TAKE 1 TABLET BY MOUTH EVERY MORNING Rx Instructions: TAKE 1 TABLET BY MOUTH EVERY MORNING
[2022-04-07 09:05] VITALS: BP 107/59; PULSE 65; RESP 18; O2SAT 98
--- NOTE | 2022-04-07 09:05 | P.OP_ITS ---
Procedure Note - Detailed Date of Procedure 04/07/22 Pre-op Diagnosis incisional hernia Post-op Diagnosis Other (Wide mouthed large incisional hernia) Procedure Performed Diagnostic laparoscopy Surgeon Adilson Vazquez MD Coil Machine Operator Sherly Browncain MATERIAL CONTROL SUPERVISOR MATERIAL CONTROL SUPERVISOR Anesthesia General and Local (0.25% Marcaine with epinephrine) Indications Patient had a hand access laparoscopic small bowel resection for intussusception in December. Postprocedure, she developed an incisional hernia at the hand access port. She also has a small umbilical hernia. The hernia is not palpable a supine position but only on standing. CT scan was done and showed a 5 cm defect. Patient has a laparoscopic gastric band in place since 2007. She is taken to surgery now for laparoscopic incisional hernia repair. Findings The hernia was much larger than anticipated by exam or CT scan. I measured the defect and it was at least 9 or even 10 cm in with. Laparoscopic repair felt to be not appropriate as this type hernia should be repaired with open incisional repair and myofascial flap advancement. Procedure terminated after diagnostic laparoscopy. Description of Procedure Patient was taken to surgery and induced into general anesthesia. Moreno catheter was placed. The abdomen was prepped and draped. A left subcostal trocar was placed. This was applied Medical optical trocar. Once it was in the abdomen and insufflation was carried out, laparoscopic survey was performed. Contrary to the CT scan and exam, the hernia was extremely wide mouth with no small bowel adherent to the hernia although this was suggested on the CT scan. The gastric band tubing was evident intra-abdominally but was fairly loose and not particularly difficult to manipulate. A left mid abdominal 5 mm port was placed as well as a left lower quadrant 5 mm port was placed. All trocars were placed after local anesthetic had been introduced. With the [address], a ruler was placed laparoscopically. Measuring the width of the defect, it was at least 9 and possibly 10 cm in with. We removed the ruler and then evacuated CO2. We removed the trocars. Skin wounds were closed with subcuticular 4-0 Monocryl skin suture. The wounds were dressed with Exofin surgical adhesive. Patient was awakened and taken to recovery in good condition. Sponge and needle counts were correct x2. Estimated Blood Loss -2.0 Urine Output -50.0 Drains No Packing No Pathology None sent Complications No immediate complications Condition Stable Disposition PACU [facility] Billing Surgery - Charge Forward: Surgery Billing (Diagnostic laparoscopy)
[2022-04-07 09:20] VITALS: BP 125/63; PULSE 62; RESP 16
[2022-04-07 09:50] VITALS: BP 119/77; PULSE 60; RESP 16
--- NOTE | 2022-04-07 10:12 | SUR.PHASEII ---
pt meets discharge criteria and is waiting on her ride. breathing even and unlabored. denies any needs at this time.
== END 2022-04-07 10:21 | disposition home or self-care (01) ==
PROVIDERS: PCP Family Medicine; Visit Provider Surgery
PROC: (CPT 49654; principal; 2022-04-07 07:30)
DX: K43.2 Incisional hernia without obstruction or gangrene (principal); K42.9 Umbilical hernia without obstruction or gangrene; Z53.8 Procedure and treatment not carried out for other reasons; Z98.84 Bariatric surgery status; Z87.19 Personal history of other diseases of the digestive system; K21.9 Gastro-esophageal reflux disease without esophagitis; F41.9 Anxiety disorder, unspecified; F32.A Depression, unspecified; Z87.891 Personal history of nicotine dependence
CPT/HCPCS: 49654; A9270; J0690; J1100; J1885; J2250; J2370; J2405; J2704; J2710; J3010; J7120